=== PATIENT | female | born 1990 | race Caucasian/White ===

== ENCOUNTER 2018-04-13 11:59 | Inpatient (IN) ==
[2018-04-13 12:45] LABS: Basophils % 0.3 %; Eosinophils # 0.2 K/mcL (0.0-0.6); Eosinophils % 2.3 %; Hematocrit 36.2 % (35.3-44.9); Immature Granulocytes % 0.9 % (0-4); Lymphocytes % 26.2 %; Mean Corpuscular HGB Conc 30.4 g/dL (31.6-35.5); Mean Corpuscular Hemoglobin 23.5 pg (28.0-33.3); Mean Corpuscular Volume 77.4 fL (83.0-100.0); Mean Platelet Volume 9.8 fL (9.4-12.4); Monocytes # 0.7 K/mcL (0.0-1.3); Monocytes % 9.6 %; Neutrophils # 4.6 K/mcL (1.6-8.9); Platelet Count 314 K/mcL (140-400); Red Blood Count 4.68 M/mcL (3.82-4.97); Red Cell Distribution Width 19.4 % (11.5-14.5); Segmented Neutrophils % 60.7 %
[2018-04-13 12:58] LABS: BUN/Creatinine Ratio 24 (6-26); Blood Urea Nitrogen 14 mg/dL (6-20); Calcium 9.8 mg/dL (8.6-10.3); Carbon Dioxide 28 mEq/L (23-29); Chloride 101 mEq/L (98-107); Glucose 89 mg/dL (70-105); Osmolality,Calculated 286 (280-300); Potassium 3.5 mEq/L (3.5-5.1); Sodium 138 mEq/L (136-145); eGFR For Non-African Americans > 60 (> 60)
[2018-04-13 13:00] LABS: Troponin I < 0.03 ng/mL (< 0.04)
[2018-04-13] MEDS ORDERED: Vancomycin 1,000 MG in D5% in Water 250 ML IVPB ONE (13:24)
[2018-04-13] MEDS ORDERED: Piperacillin/Tazobactam 3.375 GM in 0.9 % Sodium Chloride Mini Bag 100 ML IVPB ONE (13:24)
[2018-04-13] MEDS ORDERED: 0.9 % Sodium Chloride 1,000 ML IVC ONE (13:24)
[2018-04-13] MEDS ORDERED: Acetaminophen 325 MG TABLET PO ONE (13:26)
[2018-04-13] MEDS ORDERED: Ketorolac 15 MG/ML VIAL IVP ONE (13:26)
--- NOTE | 2018-04-13 14:36 | Emergency Department Note ---
Disposition Clinical Impression: Sepsis, Pneumonia Disposition: Admitted As Inpatient Condition: Fair SOB HPI - General Chief Complaint: ED Shortness of Breath/Dyspnea Stated Complaint: Pneumonia Time Seen by Provider: 04/13/18 12:11 Source: patient Limitations: no limitations Nursing Notes Reviewed: Yes Vital Signs Reviewed: Yes - History of Present Illness 27-year-old female presents emergency Department with concerns of difficulty in breathing and chest pain. Patient is tachycardic on initial evaluation. She was recently admitted for multifocal pneumonia and had been discharged yesterday. It appears that she requested to leave early however upon returning home she developed worsening of her pain and breathing. Patient is afebrile emergency department. She does not have elevation of white blood cell count. She has been using Levaquin at home and was given Levaquin in the hospital. - Related Data Home Medications Medication Instructions Recorded Confirmed Methadone 90 mg PO 0730 03/23/18 04/13/18 RX: Acetaminophen [Tylenol] 325 mg PO Q6HR PRN 03/23/18 04/13/18 RX: Gabapentin [Neurontin] 100 mg PO TID 03/23/18 04/13/18 RX: Albuterol Sulfate [Albuterol 2 puff IH Q4HR PRN 04/09/18 04/13/18 Inhaler] Previous Rx's Medication Instructions Recorded RX: Promethazine/Codeine 5 ml PO Q6HR PRN 5 Days #100 udc 04/12/18 [Phenergan/Codeine] levoFLOXacin [Levaquin] 750 mg PO DAILY #7 tablet 04/12/18 Allergies Allergy/AdvReac Type Severity Reaction Status Date / Time No Known Allergies Allergy Verified 04/13/18 12:03 All systems ED: reviewed and negative except as stated. Review of Systems: As Per HPI Past Medical History - Past Medical History Attestation: Yes The following information was validated with the patient. Source: patient Medical history: Reports: non-contributory, kidney stones Surgical history: Reports: cholecystectomy Psychiatric history: Reports: no psych history SOMMELIER history: Reports: other - Social History Smoking Status: Current every day smoker Smokeless Tobacco Status: No Alcohol use: Reports: none Drug use: Reports: none, other Physical Exam General: Alert and in no acute distress Skin: Warm, dry, intact Head: Normocephalic and atraumatic Neck: Supple, trachea midline and no tenderness Cardiovascular: Tachycardia, no murmur, normal perfusion Respiratory: CTAB, no wheezing, cough, or respiratory distress Musculoskeletal: Normal strength, no tenderness, swelling or deformity GI: Soft, nontender, nondistended. Bowel sounds present Neuro: A&O to person, place, time and situation. No focal deficits noted on exam Psychiatric: cooperative and appropriate mood and affect. - General Limitations: no limitations General appearance: alert Course Vital Signs Temperature 98.3 F 04/13/18 12:02 Pulse Rate 135 04/13/18 12:02 Respiratory Rate 24 04/13/18 12:02 Blood Pressure 113/76 04/13/18 12:02 O2 Sat by Pulse Oximetry 99 04/13/18 12:02 Temperature 98.2 F 04/14/18 20:05 Pulse Rate 110 04/14/18 20:05 Respiratory Rate 16 04/14/18 20:05 Blood Pressure 114/70 04/14/18 20:05 O2 Sat by Pulse Oximetry 98 04/14/18 20:05 Oxygen Delivery Oxygen Delivery Room Air Shortness of Breath/Dyspnea - [facility] Narrative Medical decision making narrative: CTA negative for acute PE. Shows multiple groundglass appearance. Patient given antibiotics in the emergency department for likely pneumonia. Patient will be admitted to the hospital for further care and evaluation - Medical Records Medical records reviewed: Yes I reviewed the patient's medical records. - Lab Data Lab results reviewed: Yes I reviewed the patient's lab results. Result diagrams: 04/14/18 01:03 04/14/18 01:03 Lab Results 04/13/18 04/13/18 04/13/18 Range/Units 12:27 12:27 12:27 WBC 7.5 (4.3-11.1) K/mcL RBC 4.68 (3.82-4.97) M/mcL Hgb 11.0 L (11.5-15.4) g/dL Hct 36.2 (35.3-44.9) % MCV 77.4 L (83.0-100.0) fL MCH 23.5 L (28.0-33.3) pg MCHC 30.4 L (31.6-35.5) g/dL RDW 19.4 H (11.5-14.5) % Plt Count 314 (140-400) K/mcL MPV 9.8 (9.4-12.4) fL Immature Gran % 0.9 (0-4) % Seg Neutrophils % 60.7 % Lymphocytes % 26.2 % Monocytes % 9.6 % Eosinophils % 2.3 % Basophils % 0.3 % Neutrophils # 4.6 (1.6-8.9) K/mcL Lymphocytes # 2.0 (0.6-4.6) K/mcL Monocytes # 0.7 (0.0-1.3) K/mcL Eosinophils # 0.2 (0.0-0.6) K/mcL Basophils # 0.0 (0.0-0.2) K/mcL Sodium 138 (136-145) mEq/L Potassium 3.5 (3.5-5.1) mEq/L Chloride 101 (98-107) mEq/L Carbon Dioxide 28 (23-29) mEq/L BUN 14 (6-20) mg/dL Creatinine 0.58 L (0.60-1.20) mg/dL Est GFR ( Amer) > 60 (> 60) Est GFR (Non-Af Amer) > 60 (> 60) BUN/Creatinine Ratio 24 (6-26) Glucose 89 (70-105) mg/dL Calculated Osmolality 286 (280-300) Lactic Acid 1.9 (0.5-2.2) mmol/L Calcium 9.8 (8.6-10.3) mg/dL Troponin I < 0.03 (< 0.04) ng/mL B-Natriuretic Peptide (Less than 100) pg/mL 04/13/18 Range/Units 12:27 WBC (4.3-11.1) K/mcL RBC (3.82-4.97) M/mcL Hgb (11.5-15.4) g/dL Hct (35.3-44.9) % MCV (83.0-100.0) fL MCH (28.0-33.3) pg MCHC (31.6-35.5) g/dL RDW (11.5-14.5) % Plt Count (140-400) K/mcL MPV (9.4-12.4) fL Immature Gran % (0-4) % Seg Neutrophils % % Lymphocytes % % Monocytes % % Eosinophils % % Basophils % % Neutrophils # (1.6-8.9) K/mcL Lymphocytes # (0.6-4.6) K/mcL Monocytes # (0.0-1.3) K/mcL Eosinophils # (0.0-0.6) K/mcL Basophils # (0.0-0.2) K/mcL Sodium (136-145) mEq/L Potassium (3.5-5.1) mEq/L Chloride (98-107) mEq/L Carbon Dioxide (23-29) mEq/L BUN (6-20) mg/dL Creatinine (0.60-1.20) mg/dL Est GFR ( Amer) (> 60) Est GFR (Non-Af Amer) (> 60) BUN/Creatinine Ratio (6-26) Glucose (70-105) mg/dL Calculated Osmolality (280-300) Lactic Acid (0.5-2.2) mmol/L Calcium (8.6-10.3) mg/dL Troponin I (< 0.04) ng/mL B-Natriuretic Peptide 14 (Less than 100) pg/mL - Radiology Data Radiology results reviewed: Yes I reviewed the patient's radiology results. - EKG Data EKG attestation: Yes I reviewed and interpreted this EKG. EKG results narrative: Sinus tachycardia with a rate of 122. QTc 468, QRS 76. No STEMI.
[2018-04-13] MEDS ORDERED: Isovue-370 500 ML INFUS..BTL IV ONE (14:39)
--- NOTE | 2018-04-13 17:05 | Internal Med History&Physical ---
Date of Encounter: 04/13/18 Time of Encounter: 17:01 Internal Medicine - H&P: HPI Chief complaint: Shortness of breath Admitted From: Home Plans for Post Hospital Care: Home History of present illness: Ms. Miguel is a 27 year old current every day smoker, homeless female with recent admission for multifocal pneumonia discharged on 04/12 presented to the emergency department with complaint of shortness of breath. As per patient and documentation she is had nearly two-month history of respiratory symptoms where she has been to urgent care multiple times in the past 2 months and has received various antibiotics, inhalers and steroids for her shortness of breath. She reports that none of the medicines above have im proved her symptoms and she continues to worsen. She reports that she has taken all the antibiotics, inhalers and steroids as prescribed and has finished all the courses. Today she went to her methadone clinic however was given half of her methadone dose and was feeling out of breath at rest and on ambulation so she decided to come to the emergency department. She reports that she has a productive cough with yellow sputum denies blood. Coughing is associated with chest pain, he denies history of blood clots, leg swelling, calf tenderness. She cannot recall any aggravating or alleviating factors. She was recently admitted to [facility] on 04/[address] angiogram at that time showed multifocal groundglass consolidation and it was negative for pulmonary embolism she was treated with IV fluids and IV Levaquin and was discharged to finish course of by mouth Levaquin however she could not catch her breath so she decided to come to the emergency department for further evaluation today. 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 She the current every day smoker but is trying to quit In the ED she was found to be tachycardic and tachypneic CT angiogram of the chest was repeated which was negative for PE however he showed worsening Multiple areas of ground-glass pulmonary opacities, with areas of solid pulmonary opacities. Ground-glass pulmonary opacity have decreased, while small solid pulmonary opacities have increased. Differential consideration includes ongoing atypical infection, pulmonary edema, or aspiration. Pulmonary hemorrhage is less likely. Past Med Surg Social Fam HX - Past Medical History Medical history: non-contributory, kidney stones Psychiatric history: no psych history - Past Surgical History Surgical History: cholecystectomy - Social History Smoking Status: Current every day smoker Smokeless Tobacco Status: No Alcohol use: none Drug use: none, other Internal Medicine - H&P: Meds Acetaminophen [Tylenol] 325 mg PO Q6HR PRN 03/23/18 [History] Gabapentin [Neurontin] 100 mg PO TID 03/23/18 [History] Methadone 90 mg PO 0730 03/23/18 [History] Albuterol Sulfate [Albuterol Inhaler] 2 puff IH Q4HR PRN 04/09/18 [History] Promethazine/Codeine [Phenergan/Codeine] 5 ml PO Q6HR PRN 5 Days #100 udc 04/12/18 [Rx] levoFLOXacin [Levaquin] 750 mg PO DAILY #7 tablet 04/12/18 [Rx] Allergy/AdvReac Type Severity Reaction Status Date / Time No Known Allergies Allergy Verified 04/13/18 12:03 All Systems PM: review of systems was performed and is negative for pertinent findings except as documented above in the HPI. - Constitutional Vitals: Temp Pulse Resp BP Pulse Ox 98.3 F 90 16 108/70 100 04/13/18 12:20 04/13/18 15:32 04/13/18 15:32 04/13/18 15:32 04/13/18 15:32 Exam: General: Patient is alert, oriented, no acute distress, poor hygiene Head: atraumatic, normocephalic, Eye: normal appearance, PERRL, no scleral icterus, no conjunctival injection ENT: mucous membranes moist, normal external ear exam Neck: normal inspection, trachea midline, full ROM, no carotid bruits Chest: normal inspection, symmetric chest rise Respiratory: Diffuse wheezing and crackles in the posterior lung fink Cardiovascular: Tachycardic s1 and s2 No clicks, rubs, gallops, or murmors. Abdomen: Bowel sounds present normoactive x-4 quadrants. Abdomen is soft, nondistended. no Epigastric tenderness. No guarding or rebound. No organomegaly noted, obese musculoskeletal: Spontaneously moving all extremities. no edema, no calf tenderness, Skin: warm, dry, intact.no splinter hemorrhages or Janeway lesions Neuro: Alert and oriented x4. Sensation light touch intact. Cranial nerves 2- 12 is intact. Not aphasic, no focal deficit Psych: Patient's affect is normal Internal Med - H&P Results - Labs CBC & Chem 7: 04/13/18 12:27 04/13/18 12:27 Labs: Short CBC 04/13/18 Range/Units 12:27 WBC 7.5 (4.3-11.1) K/mcL Hgb 11.0 L (11.5-15.4) g/dL Hct 36.2 (35.3-44.9) % Plt Count 314 (140-400) K/mcL Neutrophils # 4.6 (1.6-8.9) K/mcL BMP 04/13/18 12:27 Sodium 138 Potassium 3.5 Chloride 101 Carbon Dioxide 28 BUN 14 Creatinine 0.58 L Glucose 89 Calcium 9.8 Cardiac Enzymes 04/13/18 Range/Units 12:27 Troponin I < 0.03 (< 0.04) ng/mL - EKG Data -: EKG Interpreted by Myself (Sinus tachycardia, QT 468) - Impressions ITS Impressions Chest X-Ray 04/13/18 12:33 IMPRESSION: 1. No active pulmonary disease. D/ / Giorgi Bacon MD / Giorgi Bacon MD Interpreting Provider: Giorgi Bacon MD Chest CTA 04/13/18 14:39 IMPRESSION: No evidence of acute pulmonary emboli. Multiple areas of ground-glass pulmonary opacities, with areas of solid pulmonary opacities. Ground-glass pulmonary opacity have decreased, while small solid pulmonary opacities have increased. Differential consideration includes ongoing atypical infection, pulmonary edema, or aspiration. Pulmonary hemorrhage is less likely. Consider three month follow-up to document resolution. Numerous pulmonary nodules within the bilateral lower lobes are new since previous examination. This could be seen in setting of atypical infection or aspiration. Attention on follow-up examination is recommended. D/ 04/13/2018 16:47:48 Bernard Bauer MD / zain Interpreting Provider: Bernard Bauer MD - Assessment and plan (1) Multifocal pneumonia Current Visit: Yes Status: Acute Assessment and plan: Atypical pneumonia versus aspiration pneumonia has failed multiple OP treatments We will start her on vancomycin, Zosyn, Levaquin- pharmacy to dose - watch QT renally adjust above Abx Urine antigens, respiratory viral panel, sputum cultures, blood cultures Oxygen via nasal cannula to keep saturations above 92 Solu-Medrol 40 mg every 8 hours HIV,Quantiferon, mycoplasma DuoNeb's every 4 hours Pulmonology consult Consider ID consult (2) History of substance abuse Current Visit: No Status: Acute Assessment and plan: U tox Confirmed methadone dosage with pharmacists as it was confirmed on her last admission- ok to continue (3) Nicotine dependence Current Visit: No Status: Acute Assessment and plan: Nicotine patch Was counseled Qualifiers: Nicotine product type: cigarettes Substance use status: uncomplicated Qualified Code(s): F17.210 - Nicotine dependence, cigarettes, uncomplicated (4) Poor social situation Current Visit: Yes Status: Acute Assessment and plan: Patient apparently lives in a fci and has poor support exciting case management and social work consult (5) DVT prophylaxis Current Visit: No Status: Acute Assessment and plan: Heparin subcutaneous - Time Spent With Patient Total time spent is greater than 50% in coordination of care (as documented) at patient's floor/unit and/or counseling patient:
[2018-04-13] MEDS ORDERED: *HR* Methadone 10 MG TABLET PO ONE (17:25)
[2018-04-13] MEDS ORDERED: Naloxone 0.4 MG/ML INJ IVP PRN (17:29)
[2018-04-13] MEDS ORDERED: Levofloxacin 750 MG/150 ML 750 MG/150 ML BAG IVPB SCH (17:45)
[2018-04-13] MEDS ORDERED: Vancomycin 1 EACH in 0.9 % Sodium Chloride 250 ML IVPB SCH (18:00)
[2018-04-13] MEDS: Ipratropium/Albuterol Neb 3 ML IH SCH (20:24)
[2018-04-13] MEDS: *HR* Heparin 5,000 UNIT/ML VIAL SQ SCH (21:24)
[2018-04-13] MEDS: 0.9 % Sodium Chloride 1,000 ML IVC SCH (21:24)
[2018-04-13] MEDS: Levofloxacin 750 MG/150 ML 750 MG/150 ML BAG IVPB SCH (21:24)
[2018-04-13] MEDS: Nicotine 14 MG PATCH.TD24 TD SCH (21:25)
[2018-04-13 22:47] LABS: Bilirubin,Urine Negative (Negative); Blood,Urine Negative (Negative); Clarity,Urine Clear (Clear); Color,Urine Yellow (Yellow); Glucose,Urine (UA) Normal (Normal); Ketones,Urine Negative (Negative); Leukocyte Esterase,Urine Negative (Negative); Nitrite,Urine Negative (Negative); Protein,Urine Negative (Neg-Trace); Specific Gravity,Urine 1.029 (1.010-1.025); Urobilinogen,Urine Normal (Normal)
[2018-04-13 23:06] LABS: Amphetamine Screen,Urine Positive ng/mL (Cutoff=1000); Barbiturate Screen,Urine Negative ng/mL (Cutoff=200); Benzodiazepines Screen,Urine Negative ng/mL (Cutoff=200); Cannabinoid Screen,Urine Negative ng/mL (Cutoff = 50); Cocaine Screen,Urine Negative ng/mL (Cutoff= 300); Opiate Screen,Urine Positive ng/mL (Cutoff=300); Phencyclidine Screen,Urine Negative ng/mL (Cutoff=25)
[2018-04-13] MEDS: Piperacillin/Tazobactam 3.375 GM in 0.9 % Sodium Chloride Mini Bag 100 ML IVPB SCH (23:51)
[2018-04-13] MEDS: MethylPREDNISolone 40 MG/ML VIAL IVP SCH (23:52)
[2018-04-14] MEDS ORDERED: 0.9 % Sodium Chloride 500 ML IVC ONE (00:08)
[2018-04-14] MEDS: Ipratropium/Albuterol Neb 3 ML IH SCH ×7 (00:09→23:14)
[2018-04-14 01:26] LABS: Basophils % 0.5 %; Eosinophils # 0.2 K/mcL (0.0-0.6); Eosinophils % 3.7 %; Hematocrit 33.2 % (35.3-44.9); Hemoglobin 9.8 g/dL (11.5-15.4); Immature Granulocytes % 0.6 % (0-4); Lymphocytes # 2.4 K/mcL (0.6-4.6); Lymphocytes % 36.8 %; Mean Corpuscular HGB Conc 29.5 g/dL (31.6-35.5); Mean Corpuscular Hemoglobin 23.3 pg (28.0-33.3); Mean Corpuscular Volume 78.9 fL (83.0-100.0); Monocytes # 0.5 K/mcL (0.0-1.3); Monocytes % 8.3 %; Neutrophils # 3.2 K/mcL (1.6-8.9); Platelet Count 280 K/mcL (140-400); Red Blood Count 4.21 M/mcL (3.82-4.97); Red Cell Distribution Width 19.4 % (11.5-14.5); Segmented Neutrophils % 50.1 %
[2018-04-14 01:45] LABS: BUN/Creatinine Ratio 16 (6-26); Blood Urea Nitrogen 10 mg/dL (6-20); Calcium 8.8 mg/dL (8.6-10.3); Carbon Dioxide 27 mEq/L (23-29); Chloride 104 mEq/L (98-107); Glucose 133 mg/dL (70-105); Osmolality,Calculated 289 (280-300); Potassium 3.4 mEq/L (3.5-5.1); Sodium 139 mEq/L (136-145); eGFR For Non-African Americans > 60 (> 60)
[2018-04-14 02:19] LABS: Adenovirus Not Detected (Not Detect); Bordetella Pertussis Not Detected (Not Detect); Chlamydophila pneumoniae Not Detected (Not Detect); Coronavirus 229E Not Detected (Not Detect); Coronavirus HKU1 Not Detected (Not Detect); Coronavirus NL63 Not Detected (Not Detect); Coronavirus OC43 Not Detected (Not Detect); Human Metapneumovirus Not Detected (Not Detect); Human Rhinovirus/Enterovirus Not Detected (Not Detect); Influenza A Subtype 2009 H1 Not Detected (Not Detect); Influenza A Untypeable Not Detected (Not Detect); Influenza B Not Detected (Not Detect); Mycoplasma pneumoniae Not Detected (Not Detect); Parainfluenza Virus 1 Not Detected (Not Detect); Parainfluenza Virus 2 Not Detected (Not Detect); Parainfluenza Virus 3 Not Detected (Not Detect); Parainfluenza Virus 4 Not Detected (Not Detect); Respiratory Syncytial Virus Not Detected (Not Detect)
[2018-04-14] MEDS: Acetaminophen 325 MG TABLET PO PRN (04:25)
[2018-04-14] MEDS: *HR* Heparin 5,000 UNIT/ML VIAL SQ SCH ×3 (05:24→21:05)
[2018-04-14] MEDS ORDERED: Potassium Chloride Elixir 20 MEQ/15 ML UDC PO SCH (08:15)
[2018-04-14] MEDS: Nicotine 14 MG PATCH.TD24 TD SCH (08:21)
[2018-04-14] MEDS: MethylPREDNISolone 40 MG/ML VIAL IVP SCH ×2 (08:23→17:00)
[2018-04-14] MEDS: Folic Acid 1 MG TABLET PO SCH (08:23)
[2018-04-14] MEDS: Piperacillin/Tazobactam 3.375 GM in 0.9 % Sodium Chloride Mini Bag 100 ML IVPB SCH ×2 (08:23→16:59)
[2018-04-14] MEDS: *HR* Methadone 10 MG TABLET PO SCH (08:24)
[2018-04-14] MEDS: 0.9 % Sodium Chloride 1,000 ML IVC SCH ×2 (08:24→12:31)
--- NOTE | 2018-04-14 08:49 | Pulmonology Consult Note ---
Date of Encounter: 04/14/18 Time of Encounter: 08:45 Assessment and Plan (1) Multifocal pneumonia Current Visit: Yes Status: Acute I reviewed the CT scan findings with the patient she has evidence of multifocal infiltrates this is either related to an infectious process that has not been treated adequately (or resistent) or more likely related to inflammatory changes within the lung secondary to pulmonary toxicity, hypersensitivity, or vasc ulitis. Patient is currently being treated with antimicrobials I would hold off on IV or oral glucocorticoids at this time pending bronchoscopy I have sent off inflammatory serologies A bronchoscopy is recommended. The procedure , risks, benefits, complications, and expected outcomes have been reviewed. Benefits of diagnosis, as well as risks to include bleeding, infection, pneumothorax which may require surgical intervention, and in a small population. The patient is aware that sometimes test is nondiagnostic. Discussed with patient and agrees to proceed. Please keep nothing by mouth at midnight Smoking cessation counseling given to the patient, please proved nicotine patch if requested (2) History of substance abuse Current Visit: No Status: Acute (3) Nicotine dependence Current Visit: No Status: Acute Qualifiers: Nicotine product type: cigarettes Substance use status: uncomplicated Qualified Code(s): F17.210 - Nicotine dependence, cigarettes, uncomplicated History of Present Illness Consult date: 04/14/18 Requesting physician: Ana Courtney Reason for consult: pneumonia Chief complaint: Difficulty in Breathing. History of present illness: The patient is a pleasant 27-year-old currently homeless woman who presented to the emergency room for shortness of breath and chest pain. She presented to the emergency department tachycardic had recently been admitted for multifocal pneumonia and was discharged the previous day. She was discharged from the hospital to take Levaquin. Of note she has a 2 month history of respiratory symptoms including multiple visits to urgent care after complaining of steroids and shortness of breath despite treatment with antibiotics and steroids symptoms have not abated. She had a CT angiogram done here on 04/10 during her presentation for similar symptoms which was notable for multifocal groundglass consolidation but negative for PE in the emergency department another a CT angiogram was performed and negative for filling defect that showed multiple areas of worsening groundglass pulmonary opacities. Pulmonary was consulted for further evaluation. Of note urinary tox screen was positive for opiates and amphetamines. Patient states her eye complaints right now is that it hurts to take a deep b reath that she has been coughing and occasionally wheezing. She denies any hemoptysis joint pains or rash. Only medication that she is taken on a new basis has been methadone. She adamantly denies any sort of inhalation of drugs including methamphetamines Past Med Surg Social Fam HX - Past Medical History Medical history: kidney stones Additional medical history: pneumonia Psychiatric history: no psych history - Past Surgical History Surgical History: cholecystectomy - Social History Smoking Status: Current every day smoker Smokeless Tobacco Status: Yes Alcohol use: none Drug use: cocaine, opiates - Family History Mother Living Status: Hx Family Respiratory Disorders: Yes (Lung cancer) Medications and Allergies Acetaminophen [Tylenol] 325 mg PO Q6HR PRN 03/23/18 [History] Gabapentin [Neurontin] 100 mg PO TID 03/23/18 [History] Methadone 90 mg PO 0730 03/23/18 [History] Albuterol Sulfate [Albuterol Inhaler] 2 puff IH Q4HR PRN 04/09/18 [History] Promethazine/Codeine [Phenergan/Codeine] 5 ml PO Q6HR PRN 5 Days #100 udc 04/12/18 [Rx] levoFLOXacin [Levaquin] 750 mg PO DAILY #7 tablet 04/12/18 [Rx] Allergy/AdvReac Type Severity Reaction Status Date / Time No Known Allergies Allergy Verified 04/13/18 12:03 All Systems: The remainder of the systems were reviewed and are negative Physical Examination Vital Signs: Vital Signs, Last 4 Hours Temp Pulse Resp BP Pulse Ox 04/14/18 07:52 99 F 117 16 102/48 96 04/14/18 07:27 20 98 General appearance: no acute distress Eyes: nonicteric ENT: oropharynx moist Effort: normal Auscultation: bilateral: wheezes (inspiratory and expiratory wheezing) Cardiovascular: regular rate and rhythm Gastrointestinal: normoactive bowel sounds Integumentary: normal Extremities: no cyanosis Musculoskeletal: no deformities normal mental status, non-focal exam mood appropriate Results - Laboratory Findings CBC and BMP: 04/14/18 01:03 04/14/18 01:03 Abnormal lab findings: Abnormal lab results Hgb 9.8 g/dL (11.5-15.4) L 04/14/18 01:03 Hct 33.2 % (35.3-44.9) L 04/14/18 01:03 MCV 78.9 fL (83.0-100.0) L 04/14/18 01:03 MCH 23.3 pg (28.0-33.3) L 04/14/18 01:03 MCHC 29.5 g/dL (31.6-35.5) L 04/14/18 01:03 RDW 19.4 % (11.5-14.5) H 04/14/18 01:03 Potassium 3.4 mEq/L (3.5-5.1) L 04/14/18 01:03 Glucose 133 mg/dL (70-105) H 04/14/18 01:03 Ur Specific Jamison 1.029 (1.010-1.025) H 04/13/18 22:15 Urine Opiates Screen Positive ng/mL (Kxliue=[id number]) H 04/13/18 22:15 Ur Amphetamines Screen Positive ng/mL (Aedmfk=0019) H 04/13/18 22:15 - Microbiology Findings Microbiology Findings: Microbiology, Last 48 Hours 04/14/18 00:30 Sputum Culture - Preliminary Sputum 04/13/18 22:15 Legionella Antigen - Final Urine,Clean Catch Streptococcus pneumoniae Antigen (M - Final 04/13/18 17:38 Blood Culture - Preliminary Peripheral Venipuncture Culture is incubating and being continuously monitored for growth. Final report to follow. 04/13/18 17:38 Blood Culture - Preliminary Peripheral Venipuncture Culture is incubating and being continuously monitored for growth. Final report to follow. 04/13/18 12:27 Blood Culture - Preliminary Peripheral Venipuncture Culture is incubating and being continuously monitored for growth. Final report to follow. - Diagnostic Findings Chest x-ray: report reviewed, image reviewed CT scan - chest: report reviewed, image reviewed - Clinical Findings Intake & Output: Intake & Output 04/13/18 04/14/18 04/14/18 23:59 07:59 15:59 Intake Total 1350 / 1350 1000 / 1000 Output Total 0 / 0 650 / 650 Balance 1350 / 1350 350 / 350 Weight 56.8 kg Consult Discharge Plan - Plan Referrals: Angie Jeff [Primary Care Provider] -
--- NOTE | 2018-04-14 09:19 | Internal Med Progress Note ---
<Bud Alvarado S - Last Filed: 04/14/18 09:27> Hospitalist Progress Note - Encounter Date of Encounter: 04/14/18 Time of Encounter: 09:14 - Subjective Interval History: Ms. Miguel is a 27yo female with a PMH of recurrent pneumonia and drug abuse. She is homeless. She was recently here and d/c on 04.12 for multifocal pneumonia. She re-presented on 04/13 for increasing SOB. She has had SOB symptoms daily for the last 2 months and has gone to see urgent care doctors many times, she has been treated with antibiotics. Yesterday she went to the methadone clinic and while getting treated she reports that he began to feel SOB and dizzy at rest, which isn't typical for her. She decided to come back to the emergency room bc she was too short of breath to do anything. She reports a productive cough of yellow and black mucus and denies any sputum production. She has chest pain associated with her SOB and states that the coughing increases her CP. She states that she chest pain doesn't radiate anywhere and isn't reproducible in nature. The pt had a CT on 04/10 that showed multifocal groundglass consolidation and it was negative for pulmonary embolism - at that time she was treated with IVF and levaquin, d/c with levaquin The pt has an extensive hx of drug abuse. She has been clean for a little over 2 mos and denies any recent IVDU. She uses tobacco products still. In the ER the pt had a repeat CT which showed worsening areas of ground glass opacities with areas of solid pulmonary opacities. This morning the pt is seen at bedside. She c/o chest pain with coughing, continued yellow/black sputum production, and SOB. She denies any N/V/D, abd pain. She denies palpiltations. She denies any recent drug use. - Exam Vitals: Temp Pulse Resp BP Pulse Ox 99 F 117 16 102/48 96 04/14/18 07:52 04/14/18 07:52 04/14/18 07:52 04/14/18 07:52 04/14/18 07:52 Exam: General: Patient is alert, oriented, no acute distress, poor hygiene Head: atraumatic, normocephalic, Eye: normal appearance, PERRL, no scleral icterus, no conjunctival injection ENT: mucous membranes moist, normal external ear exam Neck: normal inspection, trachea midline, full ROM, no carotid bruits Chest: normal inspection, symmetric chest rise Respiratory: Diffuse wheezing and crackles in the posterior lung fink Cardiovascular: Tachycardic s1 and s2 No clicks, rubs, gallops, or murmors. Abdomen: Bowel sounds present normoactive x-4 quadrants. Abdomen is soft, nondistended. no Epigastric tenderness. No guarding or rebound. No organomegaly noted, obese musculoskeletal: Spontaneously moving all extremities. no edema, no calf tenderness, Skin: warm, dry, intact.no splinter hemorrhages or Janeway lesions Neuro: Alert and oriented x4. Sensation light touch intact. Cranial nerves 2- 12 is intact. Not aphasic, no focal deficit Psych: Patient's affect is normal - Assessment and Plan (1) Multifocal pneumonia Current Visit: Yes Status: Acute Assessment and Plan: Pt has had multiple episodes of pneumonia - continues to fail outpatient treatment - was recently here and d/c on 04/11 for the same complaints - pt has a hx of IVDU and multiple risky behaviors, need to r/o HIV associated infxns and TB CT scan on admission - no evidence of PE - Atypical pneumonia versus aspiration pneumonia - numerous pulmonary nodules in the bilateral lower lobes atypical infxn vs aspiration Legionella, s pneumo antigens negative Respiratory panel negative Pt does NOT meet sepsis criteria - WBC 6.4 - HR 117, RR 16 - BP stable Plan: - keep O2 sat above 92% - blood cx pending - continue vancomycin, zosyn, levaquin day 2 - monitor renal fxn - monitor cbc - HIV, TB and mycoplasma tests pending - duonebs q4hr - solumedrol [id number], will space today if clinically improving - pulmonology conuslted, recommendations appreciated MPO/PR3, ANAND IgG, CCP IgG, complement, rheumatoid factor, cryoglobulin all pending - ID consult considered due to recurrent pneumonia (2) History of substance abuse Current Visit: No Status: Acute Assessment and Plan: UDS positive for opiates and amphetamines - continue methadone dosage as confirmed by pharmacist - methadone 90mg PO daily (3) Nicotine dependence Current Visit: No Status: Acute Assessment and Plan: Nicotine patch - current everyday smoker - counsled on the risks of lung cancer and from smoking (4) DVT prophylaxis Current Visit: No Status: Acute Assessment and Plan: Heparin subcutaneous (5) Poor social situation Current Visit: Yes Status: Acute Assessment and Plan: Lives in senior living - case management and SW to see (6) Hypokalemia Current Visit: Yes Status: Acute Assessment and Plan: Potassium 3.4 - replaced PO - check BMP in AM - Time Spent with Patient Total time spent is greater than 50% in coordination of care (as documented) at patient's floor/unit and/or counseling patient: Internal Medicine: Result - Labs CBC & Chem 7: 04/14/18 01:03 04/14/18 01:03 Labs: Short CBC 04/13/18 04/14/18 Range/Units 12:27 01:03 WBC 7.5 6.4 (4.3-11.1) K/mcL Hgb 11.0 L 9.8 L (11.5-15.4) g/dL Hct 36.2 33.2 L (35.3-44.9) % Plt Count 314 280 (140-400) K/mcL Neutrophils # 4.6 3.2 (1.6-8.9) K/mcL BMP 04/13/18 04/14/18 12:27 01:03 Sodium 138 139 Potassium 3.5 3.4 L Chloride 101 104 Carbon Dioxide 28 27 BUN 14 10 Creatinine 0.58 L 0.63 Glucose 89 133 H Calcium 9.8 8.8 Cardiac Enzymes 04/13/18 04/14/18 Range/Units 12:27 01:03 Troponin I < 0.03 < 0.03 (< 0.04) ng/mL Urine 04/13/18 Range/Units 22:15 Urine Color Yellow (Yellow) Urine Clarity Clear (Clear) Urine pH 6.0 (5.0-8.0) pH Units Ur Specific [place] 1.029 H (1.010-1.025) Urine Protein Negative (Neg-Trace) mg/dL Urine Glucose (UA) Normal (Normal) mg/dL - Impressions Impressions Chest X-Ray 04/13/18 12:33 IMPRESSION: 1. No active pulmonary disease. D/ / Giorgi Bacon MD / Giorgi Bacon MD Interpreting Provider: Giorgi Bacon MD Chest CTA 04/13/18 14:39 IMPRESSION: No evidence of acute pulmonary emboli. Multiple areas of ground-glass pulmonary opacities, with areas of solid pulmonary opacities. Ground-glass pulmonary opacity have decreased, while small solid pulmonary opacities have increased. Differential consideration includes ongoing atypical infection, pulmonary edema, or aspiration. Pulmonary hemorrhage is less likely. Consider three month follow-up to document resolution. Numerous pulmonary nodules within the bilateral lower lobes are new since previous examination. This could be seen in setting of atypical infection or aspiration. Attention on follow-up examination is recommended. D/ / 04/13/2018 16:47:48 Bernard Bauer MD / zain Interpreting Provider: Bernard Bauer MD Consult Discharge Plan - Plan Referrals: Angie Jeff [Primary Care Provider] - <Aan Courtney - Last Filed: 04/14/18 14:55> Hospitalist Progress Note - Encounter Date of Encounter: 04/14/18 - Exam Vitals: Temp Pulse Resp BP Pulse Ox 98.2 F 116 14 105/57 95 04/14/18 12:29 04/14/18 12:29 04/14/18 12:29 04/14/18 12:29 04/14/18 12:29 - Assessment and Plan (1) History of substance abuse Current Visit: No Status: Acute (2) Nicotine dependence Current Visit: No Status: Acute (3) DVT prophylaxis Current Visit: No Status: Acute (4) Multifocal pneumonia Current Visit: Yes Status: Acute (5) Poor social situation Current Visit: Yes Status: Acute (6) Hypokalemia Current Visit: Yes Status: Acute - Time Spent with Patient Total time spent is greater than 50% in coordination of care (as documented) at patient's floor/unit and/or counseling patient: Internal Medicine: Result - Labs CBC & Chem 7: 04/14/18 01:03 04/14/18 01:03 Labs: Short CBC 04/14/18 Range/Units 01:03 WBC 6.4 (4.3-11.1) K/mcL Hgb 9.8 L (11.5-15.4) g/dL Hct 33.2 L (35.3-44.9) % Plt Count 280 (140-400) K/mcL Neutrophils # 3.2 (1.6-8.9) K/mcL BMP 04/14/18 01:03 Sodium 139 Potassium 3.4 L Chloride 104 Carbon Dioxide 27 BUN 10 Creatinine 0.63 Glucose 133 H Calcium 8.8 Cardiac Enzymes 04/14/18 04/14/18 Range/Units 01:03 12:00 Troponin I < 0.03 < 0.03 (< 0.04) ng/mL Urine 04/13/18 Range/Units 22:15 Urine Color Yellow (Yellow) Urine Clarity Clear (Clear) Urine pH 6.0 (5.0-8.0) pH Units Ur Specific [place] 1.029 H (1.010-1.025) Urine Protein Negative (Neg-Trace) mg/dL Urine Glucose (UA) Normal (Normal) mg/dL - Impressions Impressions Chest CTA 04/13/18 14:39 IMPRESSION: 1. No evidence of acute pulmonary emboli. 2. Multiple areas of ground-glass pulmonary opacities, with areas of solid pulmonary opacities. Ground-glass pulmonary opacity have decreased, while solid pulmonary opacities have increased. Differential consideration includes ongoing atypical infection, pulmonary edema, or aspiration. Pulmonary hemorrhage is less likely. Consider three month follow-up to document resolution. 3. Numerous pulmonary nodules within bilateral lower lobes are new since previous examination. This could be seen in setting of atypical infection or aspiration. Attention on follow-up examination is recommended. RECOMMENDATIONS: Follow-up chest CT in 3 months to document resolution and/or evaluation of above changes. D/ : / 04/13/2018 16:47:48 Bernard Bauer MD / zain Interpreting Provider: Bernard Bauer MD Echocardiogram 04/14/18 00:44 Impressions: LVEF 60-65%. Normal LV chamber size, wall thickness and function. Normal left ventricular diastolic function. Normal right ventricular structure and function. PFO with right to left shunt. Mild mitral regurgitation. No evidence of pulmonary hypertension. Left Ventricular Wall Motion: Rest Echo Findings All wall segments showed normal motion. Findings: Study Quality * Technically adequate exam. ECG Findings * Sinus tachycardia. Left Ventricle * LVEF 60-65%. * Normal LV chamber size, wall thickness and function. * Normal left ventricular diastolic function. Right Ventricle * Normal right ventricular structure and function. Left Atrium * Normal left atrial size. Right Atrium * Normal right atrial size. Interatrial Septum * PFO with right to left shunt. Aortic Valve * Trileaflet aortic valve. * Normal aortic valve structure. * No aortic regurgitation. * No aortic stenosis. Mitral Valve * Normal mitral valve structure. * No mitral stenosis. * Mild mitral regurgitation. Tricuspid Valve * Trace tricuspid regurgitation. * No tricuspid stenosis. * Normal tricuspid valve structure. * No evidence of pulmonary hypertension. Pulmonic Valve * Normal pulmonic valve structure. * No pulmonic regurgitation. Aorta * Normally sized aortic root. Pericardium * The pericardium appears normal. IVC * Normal IVC dimensions and inspiratory collapse. Pulmonary Artery * Normal visualized portions of the main pulmonary artery. - Attending Attestation I have seen and assessed this patient and I agree with plan per resident as above Plan Recurrent Multifocal pneumonia. CT chest showing multiple ground glass opacities. continue antibiotics and steroids. Pulm consult and recs appreciated <Bud Alvarado S - Last Filed: 04/14/18 09:27> (3) Nicotine dependence Qualifiers: Nicotine product type: cigarettes Substance use status: uncomplicated Qualified Code(s): F17.210 - Nicotine dependence, cigarettes, uncomplicated <Ana Courtney - Last Filed: 04/14/18 14:55> (2) Nicotine dependence Qualifiers: Nicotine product type: cigarettes Substance use status: uncomplicated Qualified Code(s): F17.210 - Nicotine dependence, cigarettes, uncomplicated
[2018-04-14] MEDS: *HR* LORazepam 2 MG/ML VIAL IVP PRN ×3 (12:31→21:04)
[2018-04-14 12:43] LABS: Troponin I < 0.03 ng/mL (< 0.04)
--- NOTE | 2018-04-14 16:14 | Electrocardiograph Report ---
[address] [place] [address] Test Date: 2018-04-14 Pat Name: Mayuri Miguel Department: 115 Room: 3A16 Gender: F Evening Anchor: : 1990 Requested By: Joceline Goyal Order Number: [id number] Reading MD: Loi Ross Measurements Intervals [place] Rate: 62 P: 50 IN: 138 QRS: 69 QRSD: 82 T: 67 QT: 409 QTc: 413 Interpretive Statements SINUS RHYTHM NONSPECIFIC T-WAVE ABNORMALITY Electronically Signed On 04-14-2018 16:12:29 EST by Loi Ross
[2018-04-14] MEDS: Levofloxacin 750 MG/150 ML 750 MG/150 ML BAG IVPB SCH (20:37)
--- NOTE | 2018-04-14 20:49 | Electrocardiograph Report ---
[facility] Test Date: 2018-04-13 Pat Name: Mayuri Miguel Department: [id number] Room: 3A16 Gender: F Ophthalmic Dispenser: : 1990 Requested By: Clarke Russo Order Number: [id number] Reading MD: Jennifer Cheema Measurements Intervals [place] Rate: 122 P: 74 PA: 145 QRS: 75 QRSD: 76 T: 50 QT: 328 QTc: 468 Interpretive Statements Sinus tachycardia Consider right atrial enlargement Borderline T abnormalities, anterior leads Electronically Signed On 04-14-2018 20:47:24 EST by Jennifer Cheema
[2018-04-14] MEDS ORDERED: Ondansetron 4 MG/2 ML VIAL IVP PRN (21:57)
[2018-04-15] MEDS: 0.9 % Sodium Chloride 1,000 ML IVC SCH ×3 (00:04→20:27)
[2018-04-15] MEDS: Piperacillin/Tazobactam 3.375 GM in 0.9 % Sodium Chloride Mini Bag 100 ML IVPB SCH ×3 (00:06→16:47)
[2018-04-15 00:42] LABS: Basophils % 0.1 %; Lymphocytes # 0.9 K/mcL (0.6-4.6); Mean Corpuscular Hemoglobin 23.7 pg (28.0-33.3); Mean Corpuscular Volume 79.2 fL (83.0-100.0); Mean Platelet Volume 9.9 fL (9.4-12.4); Monocytes # 0.9 K/mcL (0.0-1.3); Monocytes % 4.1 %; Neutrophils # 20.7 K/mcL (1.6-8.9); Platelet Count 260 K/mcL (140-400); Red Blood Count 3.79 M/mcL (3.82-4.97); Red Cell Distribution Width 19.6 % (11.5-14.5); Segmented Neutrophils % 90.8 %
[2018-04-15 01:01] LABS: BUN/Creatinine Ratio 13 (6-26); Blood Urea Nitrogen 5 mg/dL (6-20); Calcium 8.9 mg/dL (8.6-10.3); Carbon Dioxide 25 mEq/L (23-29); Chloride 106 mEq/L (98-107); Glucose 226 mg/dL (70-105); Osmolality,Calculated 292 (280-300); Sodium 139 mEq/L (136-145); eGFR For Non-African Americans > 60 (> 60)
[2018-04-15] MEDS: Ipratropium/Albuterol Neb 3 ML IH SCH ×6 (03:41→23:41)
[2018-04-15] MEDS: *HR* Heparin 5,000 UNIT/ML VIAL SQ SCH ×3 (05:26→20:26)
[2018-04-15] MEDS: MethylPREDNISolone 40 MG/ML VIAL IVP SCH (05:26)
[2018-04-15] MEDS: Nicotine 14 MG PATCH.TD24 TD SCH (08:55)
[2018-04-15] MEDS ORDERED: *HR* Propofol 200 MG/20 ML VIAL IVP ONE (09:30)
[2018-04-15] MEDS ORDERED: Lidocaine -MPF 2% 2 ML VIAL ONE (09:30)
--- NOTE | 2018-04-15 09:37 | Anesthesia Evaluation PreOp ---
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 OPERATOR History: Denies Any Significant HX Other Medical History: Denies Any Significant HX Anesthesia History: No Prior Anesthetic Complications, Past Anesthesia Test: Negative (04/15/2018) Alcohol Use: none Drug use: other (H/O heroin use by snorting x 1 year, stopped 2 months ago--on methadone; H/O pain pill abuse prior to heroin) Medications and Allergies Acetaminophen [Tylenol] 325 mg PO Q6HR PRN 03/23/18 [History] Gabapentin [Neurontin] 100 mg PO TID 03/23/18 [History] Methadone 90 mg PO 0730 03/23/18 [History] Albuterol Sulfate [Albuterol Inhaler] 2 puff IH Q4HR PRN 04/09/18 [History] Promethazine/Codeine [Phenergan/Codeine] 5 ml PO Q6HR PRN 5 Days #100 udc 04/12/18 [Rx] levoFLOXacin [Levaquin] 750 mg PO DAILY #7 tablet 04/12/18 [Rx] Allergy/AdvReac Type Severity Reaction Status Date / Time No Known Allergies Allergy Verified 04/13/18 12:03 - Meds/Allergy Pre-op Review Medications Reviewed: Yes Allergies Reviewed: Yes Beta Blockers on Current Med List: No Anesthesia Results - Labs 04/15/18 00:31 04/15/18 00:31 - Imaging EKG: report reviewed (04/14/2018 SINUS RHYTHM NONSPECIFIC T-WAVE ABNORMALITY) Additional studies: 04/14/2018 Echo Impressions: LVEF 60-65%. Normal LV chamber size, wall thickness and function. Normal left ventricular diastolic function. Normal right ventricular structure and function. PFO with right to left shunt. Mild mitral regurgitation. No evidence of pulmonary hypertension. Anesthesia Exam Vital Signs/O2 Sat, Most Current Temp Pulse Resp BP Pulse Ox 98.4 F 78 16 112/57 97 04/15/18 07:56 04/15/18 09:34 04/15/18 09:34 04/15/18 09:34 04/15/18 09:34 Height: 4'1''/1.5m Weight: 125 lbs/56.8 kg NPO (# of Hours): 8 Pain Scale: 0 Pain Scale Used: Numeric (1 - 10) - HEENT Pupil (Motor): EOMI Mallampati: II Teeth: Edentulous Oral Opening: Greater than 3 - COAL HAULER OPERATOR LOC: Oriented COAL HAULER OPERATOR Motor: Normal RUE, Normal LUE, Normal RLE, Normal LLE, Normal Face COAL HAULER OPERATOR Sensory: Normal: RUE, LUE, RLE, LLE, Face - Cardiac Rhythm: Regular Murmur: Systolic - Pulmonary Breath Sounds: bilateral Clear Respiratory Effort: Symmetrical Anesthesia Assess/Plan ASA Score: 3 Level of consciousness: Cooperative, Oriented, Tranquil Anesthetic Plan: MAC Monitoring Plan: Standard Monitors
[2018-04-15] MEDS: Folic Acid 1 MG TABLET PO SCH (11:06)
[2018-04-15] MEDS: *HR* Methadone 10 MG TABLET PO SCH (11:06)
[2018-04-15 13:00] LABS: Appearance of Body Fluid Cloudy (Clear); Volume of Body Fluid 6 mL
--- NOTE | 2018-04-15 14:00 | Internal Med Progress Note ---
<BeraúlYun cid E - Last Filed: 04/15/18 15:14> Hospitalist Progress Note - Encounter Date of Encounter: 04/15/18 Time of Encounter: 01:00 - Subjective Interval History: MS. Miguel was seen at bedside today. She was awake and eating lunch. She states that she is feeling a bit better with less shortness of breath but still is coughing quite a bit. She states she does not want to leave until she knows what is going on with her lungs because she is worried. We talked about how long it would take to get her results back. - Exam Vitals: Temp Pulse Resp BP Pulse Ox 98.5 F 102 15 102/61 96 04/15/18 13:32 04/15/18 13:32 04/15/18 13:32 04/15/18 13:32 04/15/18 13:32 Exam: General: AAOx3, answers questions appropriately, no distress Cardio: RRR, no murmur, rubs, or gallops Pulm: Wheezing throughout both lungs, some crackles in both lower lobes Abdominal: normal bowel sounds, no rigidity or gaurding Extremities: no pedal edema, pulses equal in all 4 extremities Skin: warm, dry, intact - Assessment and Plan (1) Multifocal pneumonia Current Visit: Yes Status: Acute Assessment and Plan: Bronchoscopy with washigns adn cultures done today- will watch for results keep O2 sat above 92% blood cx pending continue vancomycin, zosyn, levaquin day 3 - duonebs q4hr - solumedrol discontinued - ID consult considered due to recurrent pneumonia (2) History of substance abuse Current Visit: No Status: Acute Assessment and Plan: UDS positive for opiates and amphetamines continue methadone dosage as confirmed by pharmacist methadone 90mg PO daily (3) Poor social situation Current Visit: Yes Status: Acute Assessment and Plan: [facility] in [facility], case management and SW to see (4) Nicotine dependence Current Visit: No Status: Acute Assessment and Plan: nicotine patch (5) Hypokalemia Current Visit: Yes Status: Resolved Assessment and Plan: continue to monitor DVT Prophylaxis: heparin subq - Time Spent with Patient Total time spent is greater than 50% in coordination of care (as documented) at patient's floor/unit and/or counseling patient: Plan of Care Discussed with: patient Internal Medicine: Result - Labs CBC & Chem 7: 04/15/18 00:31 04/15/18 00:31 Labs: Short CBC 04/15/18 Range/Units 00:31 WBC 22.8 H D (4.3-11.1) K/mcL Hgb 9.0 L (11.5-15.4) g/dL Hct 30.0 L (35.3-44.9) % Plt Count 260 (140-400) K/mcL Neutrophils # 20.7 H (1.6-8.9) K/mcL BMP 04/15/18 00:31 Sodium 139 Potassium 4.0 Chloride 106 Carbon Dioxide 25 BUN 5 L Creatinine 0.40 L Glucose 226 H Calcium 8.9 - Impressions Impressions Echocardiogram 04/14/18 00:44 Impressions: LVEF 60-65%. Normal LV chamber size, wall thickness and function. Normal left ventricular diastolic function. Normal right ventricular structure and function. PFO with right to left shunt. Mild mitral regurgitation. No evidence of pulmonary hypertension. Left Ventricular Wall Motion: Rest Echo Findings All wall segments showed normal motion. Findings: Study Quality * Technically adequate exam. ECG Findings * Sinus tachycardia. Left Ventricle * LVEF 60-65%. * Normal LV chamber size, wall thickness and function. * Normal left ventricular diastolic function. Right Ventricle * Normal right ventricular structure and function. Left Atrium * Normal left atrial size. Right Atrium * Normal right atrial size. Interatrial Septum * PFO with right to left shunt. Aortic Valve * Trileaflet aortic valve. * Normal aortic valve structure. * No aortic regurgitation. * No aortic stenosis. Mitral Valve * Normal mitral valve structure. * No mitral stenosis. * Mild mitral regurgitation. Tricuspid Valve * Trace tricuspid regurgitation. * No tricuspid stenosis. * Normal tricuspid valve structure. * No evidence of pulmonary hypertension. Pulmonic Valve * Normal pulmonic valve structure. * No pulmonic regurgitation. Aorta * Normally sized aortic root. Pericardium * The pericardium appears normal. IVC * Normal IVC dimensions and inspiratory collapse. Pulmonary Artery * Normal visualized portions of the main pulmonary artery. Consult Discharge Plan - Plan Referrals: Angie Jeff [Primary Care Provider] - <Ana Courtney - Last Filed: 04/15/18 16:51> Hospitalist Progress Note - Encounter Date of Encounter: 04/15/18 - Exam Vitals: Temp Pulse Resp BP Pulse Ox 98.2 F 99 14 98/60 97 04/15/18 14:05 04/15/18 14:05 04/15/18 14:05 04/15/18 14:05 04/15/18 14:05 - Assessment and Plan (1) History of substance abuse Current Visit: No Status: Acute (2) Nicotine dependence Current Visit: No Status: Acute (3) DVT prophylaxis Current Visit: No Status: Acute (4) Multifocal pneumonia Current Visit: Yes Status: Acute (5) Poor social situation Current Visit: Yes Status: Acute (6) Hypokalemia Current Visit: Yes Status: Resolved - Time Spent with Patient Total time spent is greater than 50% in coordination of care (as documented) at patient's floor/unit and/or counseling patient: Internal Medicine: Result - Labs CBC & Chem 7: 04/15/18 00:31 04/15/18 00:31 Labs: Short CBC 04/15/18 Range/Units 00:31 WBC 22.8 H D (4.3-11.1) K/mcL Hgb 9.0 L (11.5-15.4) g/dL Hct 30.0 L (35.3-44.9) % Plt Count 260 (140-400) K/mcL Neutrophils # 20.7 H (1.6-8.9) K/mcL BMP 04/15/18 00:31 Sodium 139 Potassium 4.0 Chloride 106 Carbon Dioxide 25 BUN 5 L Creatinine 0.40 L Glucose 226 H Calcium 8.9 - Attending Attestation I have seen and assessed this patient and I agree with plan per resident as above Plan Recurrent Multifocal pneumonia. CT chest showing multiple ground glass opacities. continue antibiotics and steroids. s/p bronchoscopy today. Await BAL. continue current plan of care <[place],Yun E - Last Filed: 04/15/18 15:14> (4) Nicotine dependence Qualifiers: Nicotine product type: cigarettes Substance use status: uncomplicated Qualif ied Code(s): F17.210 - Nicotine dependence, cigarettes, uncomplicated <Ana Courtney A - Last Filed: 04/15/18 16:51> (2) Nicotine dependence Qualifiers: Nicotine product type: cigarettes Substance use status: uncomplicated Qualified Code(s): F17.210 - Nicotine dependence, cigarettes, uncomplicated
[2018-04-15] MEDS: Acetaminophen 325 MG TABLET PO PRN (14:47)
[2018-04-15] MEDS: Levofloxacin 750 MG/150 ML 750 MG/150 ML BAG IVPB SCH (20:26)
[2018-04-15] MEDS: *HR* LORazepam 0.5 MG TABLET PO PRN (20:26)
[2018-04-16] MEDS: Piperacillin/Tazobactam 3.375 GM in 0.9 % Sodium Chloride Mini Bag 100 ML IVPB SCH ×3 (00:59→17:07)
[2018-04-16] MEDS: Ipratropium/Albuterol Neb 3 ML IH SCH ×6 (03:43→23:55)
[2018-04-16 04:45] LABS: Basophils % 0.2 %; Eosinophils % 0.2 %; Hematocrit 26.3 % (35.3-44.9); Hemoglobin 7.8 g/dL (11.5-15.4); Immature Granulocytes % 0.5 % (0-4); Lymphocytes # 3.2 K/mcL (0.6-4.6); Lymphocytes % 27.7 %; Mean Corpuscular HGB Conc 29.7 g/dL (31.6-35.5); Mean Corpuscular Hemoglobin 23.7 pg (28.0-33.3); Mean Corpuscular Volume 79.9 fL (83.0-100.0); Monocytes # 0.9 K/mcL (0.0-1.3); Monocytes % 8.1 %; Neutrophils # 7.4 K/mcL (1.6-8.9); Platelet Count 246 K/mcL (140-400); Red Blood Count 3.29 M/mcL (3.82-4.97); Red Cell Distribution Width 20.4 % (11.5-14.5); Segmented Neutrophils % 63.3 %
[2018-04-16 05:01] LABS: Alanine Aminotransferase 15 Units/L (7-52); Albumin 2.8 g/dL (3.5-5.7); Albumin/Globulin Ratio 1.2 (1.1-2.2); Alkaline Phosphatase 54 Units/L (34-104); Aspartate Amino Transferase 12 Units/L (13-39); BUN/Creatinine Ratio 20 (6-26); Bilirubin,Total 0.2 mg/dL (0.3-1.0); Blood Urea Nitrogen 11 mg/dL (6-20); Calcium 8.1 mg/dL (8.6-10.3); Carbon Dioxide 29 mEq/L (23-29); Chloride 108 mEq/L (98-107); Globulin 2.3 g/dL (2.4-3.5); Glucose 98 mg/dL (70-105); Osmolality,Calculated 293 (280-300); Potassium 3.8 mEq/L (3.5-5.1); Sodium 142 mEq/L (136-145); Total Protein 5.1 g/dL (6.4-8.9); eGFR For Non-African Americans > 60 (> 60)
[2018-04-16] MEDS: *HR* Heparin 5,000 UNIT/ML VIAL SQ SCH ×3 (05:11→23:21)
--- NOTE | 2018-04-16 07:15 | Pulmonology Progress Note ---
Date of Encounter: 04/16/18 Time of Encounter: 07:15 Assessment and Plan (1) Multifocal pneumonia Current Visit: Yes Status: Acute The patient has evidence of multifocal upper lobe predominant opacities. Bronchoscopy yesterday was notable fourth mucoid secretions throughout the tracheobronchial tree with notable black substance mixed in with the mucus I suspect this is related inhalation injury from illicit substance patient confirms that she has been snorting methamphetamine prior to admission. Possibly but less likely given her drug use and living situation could be aspergillus. I have sent off serologies for fungal infection and alerted the pathology Department that we are considering a fungal infection in this patient although again this is much less likely I think it is reasonable to continue her steroids and Levaquin pending final cu lture If there is no evidence of fungal infection I would recommend a course of steroids - but most importantly for her its can be stop using illicit substances that have the propensity of damaging her lungs including tobacco abuse. Pulmonary will continue to follow (2) History of substance abuse Current Visit: No Status: Acute (3) Nicotine dependence Current Visit: No Status: Acute Qualifiers: Nicotine product type: cigarettes Substance use status: uncomplicated Qualified Code(s): F17.210 - Nicotine dependence, cigarettes, uncomplicated Subjective Principal diagnosis: Pneumonia Interval history: No acute events overnight she says that she is generally feeling better underwent bronchoscopy yesterday without any untoward effect denies coughing up any phlegm or hemoptysis. She is been afebrile and otherwise hemodynamically stable Objective PUL Vital signs: Last Vital Signs Temp 98.5 F 04/16/18 07:08 Pulse 88 04/16/18 07:08 Resp 14 04/16/18 07:08 BP 118/78 04/16/18 07:08 Pulse Ox 95 04/16/18 07:08 General appearance: no acute distress Eyes: nonicteric ENT: oropharynx moist Neck: supple Auscultation: bilateral: rhonchi Cardiovascular: regular rate and rhythm Gastrointestinal: normoactive bowel sounds Integumentary: normal Extremities: no cyanosis, no edema, no clubbing Musculoskeletal: no deformities normal mental status, non-focal exam mood appropriate Results - Laboratory Findings CBC and BMP: 04/16/18 04:21 04/16/18 04:21 Abnormal lab findings: Abnormal lab results WBC 11.6 K/mcL (4.3-11.1) H 04/16/18 04:21 RBC 3.29 M/mcL (3.82-4.97) L 04/16/18 04:21 Hgb 7.8 g/dL (11.5-15.4) L 04/16/18 04:21 Hct 26.3 % (35.3-44.9) L 04/16/18 04:21 MCV 79.9 fL (83.0-100.0) L 04/16/18 04:21 MCH 23.7 pg (28.0-33.3) L 04/16/18 04:21 MCHC 29.7 g/dL (31.6-35.5) L 04/16/18 04:21 RDW 20.4 % (11.5-14.5) H 04/16/18 04:21 Chloride 108 mEq/L (98-107) H 04/16/18 04:21 Creatinine 0.56 mg/dL (0.60-1.20) L 04/16/18 04:21 Calcium 8.1 mg/dL (8.6-10.3) L 04/16/18 04:21 Total Bilirubin 0.2 mg/dL (0.3-1.0) L 04/16/18 04:21 AST 12 Units/L (13-39) L 04/16/18 04:21 Serum Total Protein 5.1 g/dL (6.4-8.9) L 04/16/18 04:21 Albumin 2.8 g/dL (3.5-5.7) L 04/16/18 04:21 Globulin 2.3 g/dL (2.4-3.5) L 04/16/18 04:21 Ur Specific [place] 1.029 (1.010-1.025) H 04/13/18 22:15 Fluid Appearance Cloudy (Clear) A 04/15/18 10:24 Vancomycin Trough 3 mcg/mL (5-10) L 04/15/18 12:23 Urine Opiates Screen Positive ng/mL (Vjcymf=603) H 04/13/18 22:15 Ur Amphetamines Screen Positive ng/mL (Ekiezx=7888) H 04/13/18 22:15 - Microbiology Findings Microbiology Findings: Microbiology, Last 48 Hours 04/15/18 10:00 Respiratory Culture - Preliminary Right Upper Lobe Lung 04/15/18 10:00 Respiratory Culture - Preliminary Bronchial Washings 04/15/18 10:00 Respiratory Culture - Preliminary Left Upper Lobe Lung 04/14/18 00:30 Sputum Culture - Preliminary Sputum - Clinical Findings Intake & Output: Intake & Output 04/15/18 04/15/18 04/16/18 15:59 23:59 07:59 Intake Total 1580 / 1580 1470 / 1470 300 / 300 Output Total 600 / 600 0 / 0 Balance 980 / 980 1470 / 1470 300 / 300 Weight 55.3 kg Consult Discharge Plan - Plan Referrals: Angie Jeff [Primary Care Provider] -
[2018-04-16] MEDS: Folic Acid 1 MG TABLET PO SCH (08:29)
[2018-04-16] MEDS: *HR* Methadone 10 MG TABLET PO SCH (08:29)
[2018-04-16] MEDS: Nicotine 14 MG PATCH.TD24 TD SCH (08:29)
[2018-04-16] MEDS: 0.9 % Sodium Chloride 1,000 ML IVC SCH ×3 (08:30→20:30)
[2018-04-16] MEDS: Acetaminophen 325 MG TABLET PO PRN ×2 (08:44→23:35)
--- NOTE | 2018-04-16 11:01 | Internal Med Progress Note ---
<BeraúlParesh cidYun E - Last Filed: 04/16/18 13:18> Hospitalist Progress Note - Encounter Date of Encounter: 04/16/18 Time of Encounter: 10:00 - Subjective Interval History: MS. Miguel was seen at bedside today. She was awake and alert. Concerned abotu what this could be, we spoke bout this. WE also spoke abotu smoking cessation. She denies pain and says her breathing is better. - Exam Vitals: Temp Pulse Resp BP Pulse Ox 98 F 83 13 107/67 97 04/16/18 10:42 04/16/18 10:42 04/16/18 10:42 04/16/18 10:42 04/16/18 10:42 Exam: General: AAOx3, answers questions appropriately, no distress Cardio: RRR, no murmur, rubs, or gallops Pulm: Soem wheezing in both upper lobes on expiration, no rales, crackles Abdominal: normal bowel sounds, no rigidity or gaurding Extremities: no pedal edema, pulses equal in all 4 extremities Skin: warm, dry, intact - Assessment and Plan (1) Multifocal pneumonia Current Visit: Yes Status: Acute Assessment and Plan: Bronchoscopy with washigns adn cultures done today- will watch for results keep O2 sat above 92% blood cx pending continue vancomycin, zosyn, levaquin day 4 - duonebs q4hr - solumedrol discontinued (2) History of substance abuse Current Visit: No Status: Acute Assessment and Plan: UDS positive for opiates and amphetamines, denies any drug use for 2.5 months continue methadone dosage as confirmed by pharmacist methadone 90mg PO daily (3) Poor social situation Current Visit: Yes Status: Acute Assessment and Plan: LIves in intermediate, case management and SW to see (4) Nicotine dependence Current Visit: No Status: Acute Assessment and Plan: nicotine dependence (5) Hypokalemia Current Visit: Yes Status: Resolved Assessment and Plan: continue to monitor DVT Prophylaxis: heparin subq - Time Spent with Patient Total time spent is greater than 50% in coordination of care (as documented) at patient's floor/unit and/or counseling patient: Plan of Care Discussed with: patient Internal Medicine: Result - Labs CBC & Chem 7: 04/16/18 04:21 04/16/18 04:21 Labs: Short CBC 04/16/18 Range/Units 04:21 WBC 11.6 H (4.3-11.1) K/mcL Hgb 7.8 L (11.5-15.4) g/dL Hct 26.3 L (35.3-44.9) % Plt Count 246 (140-400) K/mcL Neutrophils # 7.4 (1.6-8.9) K/mcL BMP 04/16/18 04:21 Sodium 142 Potassium 3.8 Chloride 108 H Carbon Dioxide 29 BUN 11 Creatinine 0.56 L Glucose 98 Calcium 8.1 L Liver Function 04/16/18 Range/Units 04:21 Total Bilirubin 0.2 L (0.3-1.0) mg/dL AST 12 L (13-39) Units/L ALT 15 (7-52) Units/L Alkaline Phosphatase 54 (34-104) Units/L Albumin 2.8 L (3.5-5.7) g/dL Consult Discharge Plan - Plan Referrals: Angie Jfef [Primary Care Provider] - <Ana Courtney - Last Filed: 04/16/18 17:55> Hospitalist Progress Note - Encounter Date of Encounter: 04/16/18 - Exam Vitals: Temp Pulse Resp BP Pulse Ox 98.2 F 71 16 129/82 98 04/16/18 15:12 04/16/18 15:12 04/16/18 15:52 04/16/18 15:12 04/16/18 15:52 - Assessment and Plan (1) History of substance abuse Current Visit: No Status: Acute (2) Nicotine dependence Current Visit: No Status: Acute (3) DVT prophylaxis Current Visit: No Status: Acute (4) Multifocal pneumonia Current Visit: Yes Status: Acute (5) Poor social situation Current Visit: Yes Status: Acute (6) Hypokalemia Current Visit: Yes Status: Resolved - Time Spent with Patient Total time spent is greater than 50% in coordination of care (as documented) at patient's floor/unit and/or counseling patient: Internal Medicine: Result - Labs CBC & Chem 7: 04/16/18 04:21 04/16/18 04:21 Labs: Short CBC 04/16/18 Range/Units 04:21 WBC 11.6 H (4.3-11.1) K/mcL Hgb 7.8 L (11.5-15.4) g/dL Hct 26.3 L (35.3-44.9) % Plt Count 246 (140-400) K/mcL Neutrophils # 7.4 (1.6-8.9) K/mcL BMP 04/16/18 04:21 Sodium 142 Potassium 3.8 Chloride 108 H Carbon Dioxide 29 BUN 11 Creatinine 0.56 L Glucose 98 Calcium 8.1 L Liver Function 04/16/18 Range/Units 04:21 Total Bilirubin 0.2 L (0.3-1.0) mg/dL AST 12 L (13-39) Units/L ALT 15 (7-52) Units/L Alkaline Phosphatase 54 (34-104) Units/L Albumin 2.8 L (3.5-5.7) g/dL - Attending Attestation I have seen and assessed this patient and I agree with plan per resident as above Plan Recurrent Multifocal pneumonia. CT chest showing multiple ground glass op acities. continue antibiotics and steroids. s/p bronchoscopy notable for fourth mucoid secretions throughout the tracheobronchial tree with notable black substance mixed in with the mucus. Likely related to snorting meth. Continue steroids and levaquin. Will d/c vanc and zosyn. Awaiting fungal cultures. Pulmonary following <Yun Vega E - Last Filed: 04/16/18 13:18> (4) Nicotine dependence Qualifiers: Nicotine product type: cigarettes Substance use status: uncomplicated Qualified Code(s): F17.210 - Nicotine dependence, cigarettes, uncomplicated <FolevanmiSupo A - Last Filed: 04/16/18 17:55> (2) Nicotine dependence Qualifiers: Nicotine product type: cigarettes Substance use status: uncomplicated Qualified Code(s): F17.210 - Nicotine dependence, cigarettes, uncomplicated
[2018-04-16] MEDS: MethylPREDNISolone 40 MG/ML VIAL IVP SCH ×3 (11:40→23:21)
[2018-04-16 12:42] LABS: Mycoplasma pneumoniae IgG 0.76 U/L (<=0.09)
[2018-04-16 12:58] LABS: ANA IgG by ELISA NONE DETECTED (None Detected); Myeloperoxidase Ab 0 AU/mL (0-19); Serine Protease-3 Antibody 1 AU/mL (0-19)
[2018-04-16] MEDS: *HR* LORazepam 0.5 MG TABLET PO PRN (14:18)
--- NOTE | 2018-04-16 16:33 | Electrocardiograph Report ---
[place] [id number] Test Date: 2018-04-14 Pat Name: Mayuri Miguel Department: 115 Room: 3A16 Gender: F [employer]: : [id number] Requested By: Ana Courtney Order Number: [id number] Reading MD: Loi Ross Measurements Intervals [place] Rate: 119 P: 70 HI: 108 QRS: 62 QRSD: 86 T: 71 QT: 359 QTc: 429 Interpretive Statements SINUS TACHYCARDIA WITH SHORT HI INTERVAL ABNORMAL RHYTHM ECG Electronically Signed On 04-16-2018 16:32:22 EST by Loi Ross
[2018-04-17 03:14] LABS: Basophils % 0.1 %; Hematocrit 30.1 % (35.3-44.9); Lymphocytes # 0.8 K/mcL (0.6-4.6); Mean Corpuscular HGB Conc 29.9 g/dL (31.6-35.5); Mean Corpuscular Hemoglobin 23.5 pg (28.0-33.3); Mean Corpuscular Volume 78.6 fL (83.0-100.0); Mean Platelet Volume 10.1 fL (9.4-12.4); Monocytes # 0.1 K/mcL (0.0-1.3); Monocytes % 1.4 %; Neutrophils # 7.9 K/mcL (1.6-8.9); Platelet Count 274 K/mcL (140-400); Red Blood Count 3.83 M/mcL (3.82-4.97); Red Cell Distribution Width 20.3 % (11.5-14.5); Segmented Neutrophils % 87.5 %
[2018-04-17 03:34] LABS: BUN/Creatinine Ratio 16 (6-26); Blood Urea Nitrogen 8 mg/dL (6-20); Calcium 8.7 mg/dL (8.6-10.3); Carbon Dioxide 30 mEq/L (23-29); Chloride 101 mEq/L (98-107); Glucose 260 mg/dL (70-105); Osmolality,Calculated 293 (280-300); Potassium 3.7 mEq/L (3.5-5.1); Sodium 138 mEq/L (136-145); eGFR For Non-African Americans > 60 (> 60)
[2018-04-17] MEDS: Ipratropium/Albuterol Neb 3 ML IH SCH ×3 (03:37→11:09)
[2018-04-17] MEDS: *HR* Heparin 5,000 UNIT/ML VIAL SQ SCH (06:19)
[2018-04-17 06:33] VITALS: BP 147/79
--- NOTE | 2018-04-17 07:49 | Internal Med Progress Note ---
Hospitalist Progress Note - Encounter Date of Encounter: 04/17/18 Time of Encounter: 08:00 - Exam Vitals: Temp Pulse Resp BP Pulse Ox 98.7 F 88 16 147/79 95 04/17/18 06:29 04/17/18 06:29 04/17/18 07:34 04/17/18 06:29 04/17/18 07:34 Exam: General: AAOx3, answers questions appropriately, no distress Cardio: RRR, no murmur, rubs, or gallops Pulm: CTAB Abdominal: normal bowel sounds, no rigidity or gaurding Extremities: no pedal edema, pulses equal in all 4 extremities Skin: warm, dry, intact - Assessment and Plan (1) Multifocal pneumonia Current Visit: Yes Status: Acute Assessment and Plan: Pt has had multiple episodes of pneumonia - Bronchoscopy with washings and cultures done Per pulmonary can follow up in 4-6 weeks for cultures. Discharge on levaquin and tapering course of steroids (2) History of substance abuse Current Visit: No Status: Acute Assessment and Plan: UDS positive for opiates and amphetamines - continue methadone dosage as confirmed by pharmacist - methadone 90mg PO daily (3) Nicotine dependence Current Visit: No Status: Acute Assessment and Plan: Nicotine patch - current everyday smoker - counsled on the risks of lung cancer and from smoking (4) DVT prophylaxis Current Visit: No Status: Acute Assessment and Plan: Heparin subcutaneous (5) Poor social situation Current Visit: Yes Status: Acute Assessment and Plan: Lives in [facility] - case management and SW to see (6) Hypokalemia Current Visit: Yes Status: Resolved Assessment and Plan: Replaced - Time Spent with Patient Total time spent is greater than 50% in coordination of care (as documented) at patient's floor/unit and/or counseling patient: Internal Medicine: Result - Labs CBC & Chem 7: 04/17/18 02:37 04/17/18 02:37 Labs: Short CBC 04/17/18 Range/Units 02:37 WBC 9.1 (4.3-11.1) K/mcL Hgb 9.0 L (11.5-15.4) g/dL Hct 30.1 L (35.3-44.9) % Plt Count 274 (140-400) K/mcL Neutrophils # 7.9 (1.6-8.9) K/mcL BMP 04/17/18 02:37 Sodium 138 Potassium 3.7 Chloride 101 Carbon Dioxide 30 H BUN 8 Creatinine 0.50 L Glucose 260 H Calcium 8.7 Consult Discharge Plan - Plan Referrals: Halle Contreras MD [Partnered Physician] - (Web-requested, office will call the patient to schedule a follow-up. ) Angie Jeff [Primary Care Provider] - (Patient will have to call to schedule follow-up. ) Prescriptions: levoFLOXacin [Levaquin] 750 mg PO DAILY 5 Days #5 tablet Nicotine Patch [Nicoderm] 14 mg TD DAILY 30 Days #30 patch.td24 predniSONE [PredniSONE] 40 mg PO DAILY 3 Days #6 tablet (3) Nicotine dependence Qualifiers: Nicotine product type: cigarettes Substance use status: uncomplicated Qualified Code(s): F17.210 - Nicotine dependence, cigarettes, uncomplicated
[2018-04-17] MEDS: *HR* Methadone 10 MG TABLET PO SCH (08:33)
[2018-04-17] MEDS: Folic Acid 1 MG TABLET PO SCH (08:33)
[2018-04-17] MEDS: Nicotine 14 MG PATCH.TD24 TD SCH (08:45)
[2018-04-17] MEDS ORDERED: predniSONE 20 MG TABLET PO SCH (09:00)
[2018-04-17] MEDS ORDERED: levoFLOXacin 750 MG TABLET PO SCH (09:00)
--- NOTE | 2018-04-17 09:50 | Pulmonology Progress Note ---
Date of Encounter: 04/17/18 Time of Encounter: 09:30 Assessment and Plan (1) Multifocal pneumonia Status: Acute Patient presented with multifocal pneumonia with substance abuse in the past she does use her own rolled tobacco and she is homeless presented with this multifocal groundglass opacity with some suspicion for inflammatory pneumonia BAL did not show any undue organism except for some yeast species after the bronchoscopy there was concern for aspergillus infection since this on the yeast species it can be a contaminant we will wait for the final cultures patient is back to her baseline to complete the short burst of steroid on discharge to complete 7 to 10 day course of levofloxacin and follow-up in pulmonology in 4-6 weeks. The plan was communicated with the primary hospitalist. Subjective Principal diagnosis: Pneumonia Interval history: Patient presenting with multifocal pneumonia and bronchoscopy with BAL cultures is not showing up much except for some yeast , BAL galactomannan is pending . She is back to her baseline wants to go home. Objective PUL Vital signs: Last Vital Signs Temp 98.7 F 04/17/18 06:29 Pulse 88 04/17/18 06:29 Resp 16 04/17/18 07:34 BP 147/79 04/17/18 06:29 Pulse Ox 95 04/17/18 07:34 Auscultation: bilateral: clear Results - Laboratory Findings CBC and BMP: 04/17/18 02:37 04/17/18 02:37 Abnormal lab findings: Abnormal lab results Hgb 9.0 g/dL (11.5-15.4) L 04/17/18 02:37 Hct 30.1 % (35.3-44.9) L 04/17/18 02:37 MCV 78.6 fL (83.0-100.0) L 04/17/18 02:37 MCH 23.5 pg (28.0-33.3) L 04/17/18 02:37 MCHC 29.9 g/dL (31.6-35.5) L 04/17/18 02:37 RDW 20.3 % (11.5-14.5) H 04/17/18 02:37 Carbon Dioxide 30 mEq/L (23-29) H 04/17/18 02:37 Creatinine 0.50 mg/dL (0.60-1.20) L 04/17/18 02:37 Glucose 260 mg/dL (70-105) H 04/17/18 02:37 Total Bilirubin 0.2 mg/dL (0.3-1.0) L 04/16/18 04:21 AST 12 Units/L (13-39) L 04/16/18 04:21 Serum Total Protein 5.1 g/dL (6.4-8.9) L 04/16/18 04:21 Albumin 2.8 g/dL (3.5-5.7) L 04/16/18 04:21 Globulin 2.3 g/dL (2.4-3.5) L 04/16/18 04:21 Ur Specific [place] 1.029 (1.010-1.025) H 04/13/18 22:15 Fluid Appearance Cloudy (Clear) A 04/15/18 10:24 Vancomycin Trough 3 mcg/mL (5-10) L 04/15/18 12:23 Urine Opiates Screen Positive ng/mL (Utrrki=409) H 04/13/18 22:15 Ur Amphetamines Screen Positive ng/mL (Thbxok=7182) H 04/13/18 22:15 Mycoplasma pneumon IgG 0.76 U/L (<=0.09) H 04/13/18 17:43 - Microbiology Findings Microbiology Findings: Microbiology, Last 48 Hours 04/15/18 10:00 Respiratory Culture - Preliminary Left Upper Lobe Lung Yeast Species 04/15/18 10:00 Respiratory Culture - Preliminary Bronchial Washings Yeast Species 04/15/18 10:00 Respiratory Culture - Preliminary Right Upper Lobe Lung Yeast Species 04/15/18 10:00 Acid Fast Stain - Final Left Upper Lobe Lung 04/15/18 10:00 Acid Fast Stain - Final Right Upper Lobe Lung 04/15/18 10:00 Acid Fast Stain - Final Bronchial Washings 04/14/18 00:30 Sputum Culture - Final Sputum - Clinical Findings Intake & Output: Intake & Output 04/16/18 04/17/18 04/17/18 23:59 07:59 15:59 Intake Total 2090 / 2090 340 / 340 1000 / 1000 Output Total 250 / 250 Balance 1840 / 1840 340 / 340 1000 / 1000 Weight 52.3 kg 52.4 kg Consult Discharge Plan - Plan Instructions: Sepsis (DC), Pneumonia (DC) Referrals: Halle Contreras MD [Partnered Physician] - (Web-requested, office will call the patient to schedule a follow-up. ) Angie Jeff [Primary Care Provider] - (Patient will have to call to schedule follow-up. ) Prescriptions: levoFLOXacin [Levaquin] 750 mg PO DAILY 5 Days #5 tablet Nicotine Patch [Nicoderm] 14 mg TD DAILY 30 Days #30 patch.td24 predniSONE [PredniSONE] 40 mg PO DAILY 3 Days #6 tablet
--- NOTE | 2018-04-17 10:20 | Discharge Summary ---
Orders not resulted at time of discharge: Pending orders 04/13/18 17:38 Culture,Blood [BC] Stat Culture,Blood [BC] Stat QuantiFERON-TB Gold In-Tube Stat 04/14/18 09:19 Complement Activity EIA, Total Stat Cryoglobulin Stat 04/15/18 10:00 AFB Culture, Respiratory [TB] Routine AFB Culture, Respiratory [TB] Routine AFB Culture, Respiratory [TB] Routine AFB Smear [TB] Routine AFB Smear [TB] Routine AFB Smear [TB] Routine Culture,Respiratory [RM] Routine Culture,Respiratory [RM] Routine Culture,Respiratory [RM] Routine Fungal Culture [MYC] Routine Fungal Culture [MYC] Routine Fungal Culture [MYC] Routine Herpes Simplex PCR Body Fl Routine Herpes Simplex PCR Body Fl Routine Legionella Culture [RM] Routine 04/15/18 10:11 Resp.Virus Panel,Body Fl Routine 04/15/18 10:17 Bronch Asper.galactomannan Stat 04/15/18 10:18 Cell Count w Diff, Body Fluid [BF] Routine Herpes Simplex PCR Body Fl Routine Resp.Virus Panel,Body Fl Routine 04/15/18 10:24 Bronch Asper.galactomannan Routine Resp.Virus Panel,Body Fl Routine Miscellaneous Lab Test Routine 04/15/18 10:29 Bronch Asper.galactomannan Routine Miscellaneous Lab Test Routine 04/15/18 10:47 Aspergillus Ab by CF Stat Aspergillus galactomannan Ag Stat Fungitell (1,3)-dxtd-S-Jmdcqh Stat 04/16/18 07:30 Histoplasma galactomannan,Ur Stat 04/18/18 04:00 BMP [Basic Metabolic Panel] AM 0400 Complete Blood Count [HEME] AM 0400 Date of Encounter: 04/17/18 Time of Encounter: 10:15 - Discharge Diagnosis (1) Multifocal pneumonia Priority: Primary Status: Acute Assessment and Plan: 27 year old current every day smoker, homeless female with recent admission for multifocal pneumonia discharged on 04/12 presented to the emergency department with complaint of shortness of breath. As per patient and documentation she is had nearly two-month history of respiratory symptoms where she has been to urgent care multiple times in the past 2 months and has received various antibiotics, inhalers and steroids for her shortness of breath. She reports that none of the medicines above have improved her symptoms and she continues to worsen. She reports that she has taken all the antibiotics, inhalers and steroids as prescribed and has finished all the course She was asssessed with multifocal pneumonia based on CT findings and started on broad spectrum antibiotics and steroids. Pulmonary was consulted and she had a bronchoscopy done showing fourth mucoid secretions throughout the tracheobronchial tree with notable black substance mixed in with the mucus. It is suspected this is related inhalation injury from illicit substance. Patient confirmed that she had been snorting methamphetamine prior to admission.serologies for fungal infection/ aspergillus has been sent. Patient has improved and per pulmonary can follow up in 4-6 weeks for cultures. Discharge on levaquin and tapering course of steroids (2) History of substance abuse Priority: Primary Status: Acute (3) Nicotine dependence Priority: Primary Status: Acute Qualifiers: Nicotine product type: cigarettes Substance use status: uncomplicated Qualified Code(s): F17.210 - Nicotine dependence, cigarettes, uncomplicated (4) Poor social situation Priority: Primary Status: Acute (5) Hypokalemia Priority: Primary Status: Resolved (6) DVT prophylaxis Priority: Primary Status: Acute Hospital course: Ms. Miguel is a 27 year old female - Time Spent with Patient Total time spent providing and/or coordinating discharge services: - Discharge Medications Prescriptions: levoFLOXacin [Levaquin] 750 mg PO DAILY 5 Days #5 tablet Nicotine Patch [Nicoderm] 14 mg TD DAILY 30 Days #30 patch.td24 predniSONE [PredniSONE] 40 mg PO DAILY 3 Days #6 tablet Home Medications: Acetaminophen [Tylenol] 325 mg PO Q6HR PRN 03/23/18 [History] Gabapentin [Neurontin] 100 mg PO TID 03/23/18 [History] Methadone 90 mg PO 0730 03/23/18 [History] Albuterol Sulfate [Albuterol Inhaler] 2 puff IH Q4HR PRN 04/09/18 [History] Nicotine Patch [Nicoderm] 14 mg TD DAILY 30 Days #30 patch.td24 04/17/18 [Rx] levoFLOXacin [Levaquin] 750 mg PO DAILY 5 Days #5 tablet 04/17/18 [Rx] predniSONE [PredniSONE] 40 mg PO DAILY 3 Days #6 tablet 04/17/18 [Rx] Allergies/Adverse Reactions: Allergy/AdvReac Type Severity Reaction Status Date / Time No Known Allergies Allergy Verified 04/13/18 12:03 Date of admission: 04/13/18 18:28 Primary care physician: Angie Jeff Consults: 04/13/18 17:35 Consult to Pulmonology [CONS] Stat Consulting Provider: [facility] Reason for Consult: multifocal PNA , not improvimg Call Completed: No 04/13/18 17:46 Consult to Case Management [CONS] Routine Comment: 04/14/18 07:56 Consult to Pulmonology [CONS] Routine Consulting Provider: [facility] Reason for Consult: Recurrent pneumonia with ground glass opacities/ worsening findings on CT chest Call Completed: No - Constitutional Vitals: Temp Pulse Resp BP Pulse Ox 98.7 F 88 16 147/79 95 04/17/18 06:29 04/17/18 06:29 04/17/18 07:34 04/17/18 06:29 04/17/18 07:34 Exam: General: AAOx3, answers questions appropriately, no distress Cardio: RRR, no murmur, rubs, or gallops Pulm: CTAB Abdominal: normal bowel sounds, no rigidity or gaurding Extremities: no pedal edema, pulses equal in all 4 extremities Skin: warm, dry, intact - Patient Status Disposition: Home, Self-Care Condition: Good - Discharge Instructions Follow Up With: Halle Contreras MD [Partnered Physician] - (Web-requested, office will call the patient to schedule a follow-up. ) Angie Jeff [Primary Care Provider] - (Patient will have to call to schedule follow-up. )
[2018-04-17 14:41] LABS: QuantiFERON Mitogen minus NIL >10.00 IU/mL
[2018-04-19 08:48] LABS: QuantiFERON NIL 0.06 IU/mL; QuantiFERON-TB Gold In-Tube NEGATIVE (Negative)
== END 2018-04-17 13:00 | disposition home or self-care (01) | DRG 139 ==
LOC: 3ANU 11:59 → EMEROOARM 11:59 → OBSVTOIN 18:28 → SUATTDRO 18:28 → 3ANU 20:15
PROVIDERS: ADMIT Internal Medicine; ATTEND Student in an Organized Health Care Education/Training Program

== ENCOUNTER 2018-11-27 10:58 | Observation (INO) ==
[2018-11-27] MEDS ORDERED: 0.9 % Sodium Chloride 1,000 ML IVC ONE ×2 (11:35→13:49)
--- NOTE | 2018-11-27 12:01 | Emergency Department Note ---
Disposition Clinical Impression: Atypical pneumonia Disposition: Admitted As Inpatient Condition: Good Time of Disposition: 13:50 Chest Pain HPI - General Chief Complaint: ED General Medical Stated Complaint: Pneumonia Time Seen by Provider: 11/27/18 11:00 Source: patient Mode of arrival: private vehicle Limitations: no limitations Vital Signs Reviewed: Yes Nursing Notes Reviewed: Yes - History of Present Illness HPI Narrative: Patient with hx of atypical pneumonia - dx'd on CTA two days ago - presents from home for eval of worsening cough, MARJORIE, continued fever /chills and now also chest pain. Pain is described as heaviness and soreness - worse with coughing, nothing makes it better. It radiates into the back. Hx of similar last year which required admission and bronch. Cough is productive of black sputum at times. No hemoptysis. Pt complaint: chest pain Onset (ago): day(s) Duration: constant, gradually worsening Onset: during rest Pain Location: substernal, left chest, right chest, other (upper back) Severity: moderate Severity scale (1-10): 7 Quality: heaviness, dull Pain Radiation: none Improves with: nothing Worsens with: other (cough) Associated symptoms: Reports: dyspnea, fever, cough. Denies: nausea, vomiting, diaphoresis, sense of impending doom, syncope, palpitations, leg swelling Treatments prior to arrival chest pain: other (was here on 11/25 for same. Dx atypical pneumonia - found on CTA. ) - Related Data On Oral Contraceptives: No Home Medications Medication Instructions Recorded Confirmed Methadone 95 mg PO DAILY 03/23/18 11/27/18 BuPROPion XL (24 HR) [Wellbutrin 300 mg PO DAILY 11/25/18 11/27/18 Xl] DiphenhydraMINE [Benadryl] 1 - 2 cap PO HS PRN 11/25/18 11/27/18 Albuterol Sulfate [Albuterol 1 puff IH Q6HR PRN 11/27/18 11/27/18 Inhaler] Previous Rx's Medication Instructions Recorded levoFLOXacin [Levaquin] 750 mg PO DAILY #7 tablet 11/25/18 predniSONE [PredniSONE] 40 mg PO DAILY #8 tablet 11/25/18 Allergies Allergy/AdvReac Type Severity Reaction Status Date / Time No Known Allergies Allergy Verified 11/27/18 11:02 All systems ED: reviewed and negative except as stated. Review of Systems: As Per HPI Constitutional: Reports: as per HPI, fever, chills. Denies: weakness Eyes: Denies: eye pain, eye discharge, vision change ENT ED: Denies: ear pain, throat pain, congestion, dysphagia Cardiovascular: Reports: as per HPI, chest pain, dyspnea on exertion. Denies: palpitations, orthopnea, edema, syncope, paroxysmal nocturnal dyspnea Respiratory: Reports: as per HPI, cough, dyspnea, sputum production ("Sometimes black"). Denies: wheezes, hemoptysis, stridor Gastrointestinal: Denies: abdominal pain, nausea, vomiting, diarrhea Genitourinary: Denies: dysuria, frequency, hematuria Musculoskeletal: Reports: as per HPI, back pain, myalgia. 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 Absent: scleral icterus, conjunc tival injection, miosis, mydriasis, periorbital swelling - ENT ENT exam: normal oropharynx, mucous membranes moist - Neck Neck exam: Present: normal inspection, full ROM, trachea midline. Absent: tenderness, meningismus, lymphadenopathy, thyromegaly - Chest Chest inspection: Present: normal inspection, symmetric chest wall rise. Absent: tenderness - Respiratory Respiratory exam: Present: normal lung sounds bilaterally. Absent: respiratory distress, wheezes, stridor, accessory muscle use, prolonged expiratory phase - Cardiovascular Cardiovascular exam: Present: regular rate, normal rhythm, normal heart sounds - Extremities Exam Extremities exam: Present: normal inspection, normal capillary refill. Absent: pedal edema - Back Exam Back exam: Present: normal inspection, full ROM. Absent: tenderness, CVA tenderness (R), CVA tenderness (L), vertebral tenderness, rashes - Neurological Exam Neurological exam: Present: alert, oriented X3, CN II-XII intact, normal gait - Psychiatric Psychiatric exam: Present: normal affect, normal mood - Skin Skin exam: Present: warm, dry, intact, normal color Course Course Narrative: Patient was diagnosed with Atypical pneumonia two days ago. She was sent home on Levaquin and is not improving. Labs, meds and cxr ordered. Vitals are normal. She appears uncomfortable but non-toxic. Lungs are clear. Labs show leukocytosis of 12 - increased c/w two days ago. Lactate is 2.1. Cultures ordered. Patient received Normal Saline and Toradol. This helped a little with the pain. Troponin is negative. In the setting of a heart score of 1 and constant pain since yesterday, it is very unlikely that her symptoms are related to ACS. 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 She currently lives with her sister and states that she has been clean for 6 months. CXR read by radiologist as no acute abnormality. Will contact hospitalist for admission. Case discussed with Dr. Stefany Russo. He has had face to face time with the patient and agrees with the assessment and plan. Vital Signs Temperature 97.8 F 11/27/18 11:02 Pulse Rate 68 11/27/18 11:02 Respiratory Rate 18 11/27/18 11:02 Blood Pressure 106/66 11/27/18 11:02 O2 Sat by Pulse Oximetry 99 11/27/18 11:02 Temperature 97.9 F 11/27/18 15:35 Pulse Rate 74 11/27/18 15:35 Respiratory Rate 15 11/27/18 15:35 Blood Pressure 111/72 11/27/18 15:35 O2 Sat by Pulse Oximetry 98 11/27/18 15:35 Oxygen Delivery Oxygen Delivery Room Air Chest Pain - Medical Records Medical records reviewed: Yes I reviewed the patient's medical records. - Lab Data Lab results reviewed: Yes I reviewed the patient's lab results. Lab results narrative: Laboratory Last Values WBC 12.3 K/mcL (4.3-11.1) H D 11/27/18 11:59 RBC 4.66 M/mcL (3.82-4.97) 11/27/18 11:59 Hgb 10.7 g/dL (11.5-15.4) L 11/27/18 11:59 Hct 35.9 % (35.3-44.9) 11/27/18 11:59 MCV 77.0 fL (83.0-100.0) L 11/27/18 11:59 MCH 23.0 pg (28.0-33.3) L 11/27/18 11:59 MCHC 29.8 g/dL (31.6-35.5) L 11/27/18 11:59 RDW 18.3 % (11.5-14.5) H 11/27/18 11:59 Plt Count 308 K/mcL (140-400) 11/27/18 11:59 MPV 10.6 fL (9.4-12.4) 11/27/18 11:59 Immature Gran % 0.8 % (0-4) 11/27/18 11:59 Seg Neutrophils % 61.0 % 11/27/18 11:59 28.9 % 11/27/18 11:59 8.7 % 11/27/18 11:59 0.4 % 11/27/18 11:59 0.2 % 11/27/18 11:59 7.5 K/mcL (1.6-8.9) 11/27/18 11:59 3.6 K/mcL (0.6-4.6) 11/27/18 11:59 1.1 K/mcL (0.0-1.3) 11/27/18 11:59 0.1 K/mcL (0.0-0.6) 11/27/18 11:59 0.0 K/mcL (0.0-0.2) 11/27/18 11:59 PT 11.0 Seconds (9.4-12.1) 11/27/18 11:59 INR 1.0 11/27/18 11:59 APTT 28.6 Seconds (26.0-36.0) 11/27/18 11:59 Sodium 140 mEq/L (136-145) 11/27/18 11:59 Potassium 3.3 mEq/L (3.5-5.1) L 11/27/18 11:59 Chloride 103 mEq/L (98-107) 11/27/18 11:59 Carbon Dioxide 28 mEq/L (23-29) 11/27/18 11:59 BUN 11 mg/dL (6-20) 11/27/18 11:59 0.67 mg/dL (0.60-1.20) 11/27/18 11:59 Est GFR ( Amer) > 60 (> 60) 11/27/18 11:59 Est GFR (Non-Af Amer) > 60 (> 60) 11/27/18 11:59 16 (6-26) 11/27/18 11:59 Glucose 103 mg/dL (70-105) 11/27/18 11:59 290 (280-300) 11/27/18 11:59 Lactic Acid 2.1 mmol/L (0.5-2.2) 11/27/18 11:59 Calcium 9.6 mg/dL (8.6-10.3) 11/27/18 11:59 Phosphorus 4.6 mg/dL (2.7-4.5) H 11/27/18 11:59 Magnesium 1.9 mg/dL (1.6-2.6) 11/27/18 11:59 0.2 mg/dL (0.3-1.0) L 11/27/18 11:59 0.0 mg/dL (0.0-0.2) 11/27/18 11:59 0.2 mg/dL (0.0-1.2) 11/27/18 11:59 AST 16 Units/L (13-39) 11/27/18 11:59 ALT 12 Units/L (7-52) 11/27/18 11:59 71 Units/L (34-104) 11/27/18 11:59 < 0.03 ng/mL (< 0.04) 11/27/18 11:59 7.6 g/dL (6.4-8.9) 11/27/18 11:59 4.6 g/dL (3.5-5.7) 11/27/18 11:59 3.0 g/dL (2.4-3.5) 11/27/18 11:59 1.5 (1.1-2.2) 11/27/18 11:59 Result diagrams: 11/27/18 11:59 11/27/18 11:59 Lab Results 11/27/18 11/27/18 11/27/18 Range/Units 11:59 11:59 11:59 WBC 12.3 H D (4.3-11.1) K/mcL RBC 4.66 (3.82-4.97) M/mcL Hgb 10.7 L (11.5-15.4) g/dL Hct 35.9 (35.3-44.9) % MCV 77.0 L (83.0-100.0) fL MCH 23.0 L (28.0-33.3) pg MCHC 29.8 L (31.6-35.5) g/dL RDW 18.3 H (11.5-14.5) % Plt Count 308 (140-400) K/mcL MPV 10.6 (9.4-12.4) fL Immature Gran % 0.8 (0-4) % Seg Neutrophils % 61.0 % Lymphocytes % 28.9 % Monocytes % 8.7 % Eosinophils % 0.4 % Basophils % 0.2 % Neutrophils # 7.5 (1.6-8.9) K/mcL Lymphocytes # 3.6 (0.6-4.6) K/mcL Monocytes # 1.1 (0.0-1.3) K/mcL Eosinophils # 0.1 (0.0-0.6) K/mcL Basophils # 0.0 (0.0-0.2) K/mcL PT 11.0 (9.4-12.1) Seconds INR 1.0 APTT 28.6 (26.0-36.0) Seconds Sodium 140 (136-145) mEq/L Potassium 3.3 L (3.5-5.1) mEq/L Chloride 103 (98-107) mEq/L Carbon Dioxide 28 (23-29) mEq/L BUN 11 (6-20) mg/dL Creatinine 0.67 (0.60-1.20) mg/dL Est GFR ( Amer) > 60 (> 60) Est GFR (Non-Af Amer) > 60 (> 60) BUN/Creatinine Ratio 16 (6-26) Glucose 103 (70-105) mg/dL Calculated Osmolality 290 (280-300) Lactic Acid (0.5-2.2) mmol/L Calcium 9.6 (8.6-10.3) mg/dL Phosphorus 4.6 H (2.7-4.5) mg/dL Magnesium 1.9 (1.6-2.6) mg/dL Total Bilirubin 0.2 L (0.3-1.0) mg/dL Direct Bilirubin 0.0 (0.0-0.2) mg/dL Indirect Bilirubin 0.2 (0.0-1.2) mg/dL AST 16 (13-39) Units/L ALT 12 (7-52) Units/L Alkaline Phosphatase 71 (34-104) Units/L Troponin I < 0.03 (< 0.04) ng/mL Serum Total Protein 7.6 (6.4-8.9) g/dL Albumin 4.6 (3.5-5.7) g/dL Globulin 3.0 (2.4-3.5) g/dL Albumin/Globulin Ratio 1.5 (1.1-2.2) Urine Color (Yellow) Urine Clarity (Clear) Urine pH (5.0-8.0) pH Units Ur Specific [place] (1.010-1.025) Urine Protein (Neg-Trace) mg/dL Urine Glucose (UA) (Normal) mg/dL Urine Ketones (Negative) mg/dL Urine Blood (Negative) Urine Nitrite (Negative) Urine Bilirubin (Negative) Urine Urobilinogen (Normal) mg/dL Ur Leukocyte Esterase (Negative) Urine Microscopic RBC (0-3) per hpf Urine Microscopic WBC (0-3) per hpf Ur Squamous Epith Cells (None-Few) per lpf Urine Bacteria (None-Few) per hpf Hyaline Casts (None-Few) per lpf Ur Culture Indicated? (NO) 11/27/18 11/27/18 11/27/18 Range/Units 11:59 13:59 16:30 WBC (4.3-11.1) K/mcL RBC (3.82-4.97) M/mcL Hgb (11.5-15.4) g/dL Hct (35.3-44.9) % MCV (83.0-100.0) fL MCH (28.0-33.3) pg MCHC (31.6-35.5) g/dL RDW (11.5-14.5) % Plt Count (140-400) K/mcL MPV (9.4-12.4) fL Immature Gran % (0-4) % Seg Neutrophils % % Lymphocytes % % Monocytes % % Eosinophils % % Basophils % % Neutrophils # (1.6-8.9) K/mcL Lymphocytes # (0.6-4.6) K/mcL Monocytes # (0.0-1.3) K/mcL Eosinophils # (0.0-0.6) K/mcL Basophils # (0.0-0.2) K/mcL PT (9.4-12.1) Seconds INR APTT (26.0-36.0) Seconds Sodium (136-145) mEq/L Potassium (3.5-5.1) mEq/L Chloride (98-107) mEq/L Carbon Dioxide (23-29) mEq/L BUN (6-20) mg/dL Creatinine (0.60-1.20) mg/dL Est GFR ( Amer) (> 60) Est GFR (Non-Af Amer) (> 60) BUN/Creatinine Ratio (6-26) Glucose (70-105) mg/dL Calculated Osmolality (280-300) Lactic Acid 2.1 1.9 (0.5-2.2) mmol/L Calcium (8.6-10.3) mg/dL Phosphorus (2.7-4.5) mg/dL Magnesium (1.6-2.6) mg/dL Total Bilirubin (0.3-1.0) mg/dL Direct Bilirubin (0.0-0.2) mg/dL Indirect Bilirubin (0.0-1.2) mg/dL AST (13-39) Units/L ALT (7-52) Units/L Alkaline Phosphatase (34-104) Units/L Troponin I (< 0.04) ng/mL Serum Total Protein (6.4-8.9) g/dL Albumin (3.5-5.7) g/dL Globulin (2.4-3.5) g/dL Albumin/Globulin Ratio (1.1-2.2) Urine Color Yellow (Yellow) Urine Clarity Clear (Clear) Urine pH 6.5 (5.0-8.0) pH Units Ur Specific [place] 1.010 (1.010-1.025) Urine Protein Negative (Neg-Trace) mg/dL Urine Glucose (UA) Normal (Normal) mg/dL Urine Ketones Negative (Negative) mg/dL Urine Blood Trace H (Negative) Urine Nitrite Negative (Negative) Urine Bilirubin Negative (Negative) Urine Urobilinogen Normal (Normal) mg/dL Ur Leukocyte Esterase Small H (Negative) Urine Microscopic RBC 15-30 H (0-3) per hpf Urine Microscopic WBC 5-15 H (0-3) per hpf Ur Squamous Epith Cells Many H (None-Few) per lpf Urine Bacteria None Seen (None-Few) per hpf Hyaline Casts None Seen (None-Few) per lpf Ur Culture Indicated? YES A (NO) - Radiology Data Radiology results reviewed: Yes I reviewed the patient's radiology results. Chest X-Ray 11/27/18 11:37 IMPRESSION: No acute process. D/ / Erasto Grey MD / Erasto Grey MD Interpreting Provider: Erasto Grey MD - EKG Data EKG attestation: Yes I reviewed and interpreted this EKG. EKG shows normal: sinus rhythm Rate: normal Rhythm: NSR T wave inversions noted in: v1, v2 When compared to previous EKG there are: no significant changes Interpretation: unchanged when compared to prior tracing (date) (11/25), nonspecific ST-T wave changes Heart Score - Score History: Slightly Suspicious EKG: Normal Age: Less than 45 Risk Factors: 1-2 risk factors Troponin: Less than normal limit HEART Score Total: 1
[2018-11-27] MEDS ORDERED: Ketorolac 15 MG/ML VIAL IVP ONE (12:11)
[2018-11-27 12:32] LABS: Basophils % 0.2 %; Eosinophils # 0.1 K/mcL (0.0-0.6); Eosinophils % 0.4 %; Hematocrit 35.9 % (35.3-44.9); Hemoglobin 10.7 g/dL (11.5-15.4); Immature Granulocytes % 0.8 % (0-4); Lymphocytes # 3.6 K/mcL (0.6-4.6); Lymphocytes % 28.9 %; Mean Corpuscular HGB Conc 29.8 g/dL (31.6-35.5); Mean Platelet Volume 10.6 fL (9.4-12.4); Monocytes # 1.1 K/mcL (0.0-1.3); Monocytes % 8.7 %; Neutrophils # 7.5 K/mcL (1.6-8.9); Platelet Count 308 K/mcL (140-400); Red Blood Count 4.66 M/mcL (3.82-4.97); Red Cell Distribution Width 18.3 % (11.5-14.5)
[2018-11-27 12:34] LABS: White Blood Count 12.3 K/mcL (4.3-11.1)
[2018-11-27 12:42] LABS: Activated Partial Thrombo Time 28.6 Seconds (26.0-36.0)
[2018-11-27 12:54] LABS: Alanine Aminotransferase 12 Units/L (7-52); Albumin 4.6 g/dL (3.5-5.7); Albumin/Globulin Ratio 1.5 (1.1-2.2); Alkaline Phosphatase 71 Units/L (34-104); Aspartate Amino Transferase 16 Units/L (13-39); BUN/Creatinine Ratio 16 (6-26); Bilirubin,Indirect 0.2 mg/dL (0.0-1.2); Bilirubin,Total 0.2 mg/dL (0.3-1.0); Blood Urea Nitrogen 11 mg/dL (6-20); Calcium 9.6 mg/dL (8.6-10.3); Carbon Dioxide 28 mEq/L (23-29); Chloride 103 mEq/L (98-107); Glucose 103 mg/dL (70-105); Magnesium 1.9 mg/dL (1.6-2.6); Osmolality,Calculated 290 (280-300); Phosphorous 4.6 mg/dL (2.7-4.5); Potassium 3.3 mEq/L (3.5-5.1); Sodium 140 mEq/L (136-145); Total Protein 7.6 g/dL (6.4-8.9); Troponin I < 0.03 ng/mL (< 0.04); eGFR For African Americans > 60 (> 60); eGFR For Non-African Americans > 60 (> 60)
[2018-11-27] MEDS ORDERED: cefTRIAXone 1,000 MG in 0.9 % Sodium Chloride Mini Bag 100 ML IVPB ONE (13:49)
[2018-11-27 14:10] LABS: Bilirubin,Urine Negative (Negative); Blood,Urine Trace (Negative); Clarity,Urine Clear (Clear); Color,Urine Yellow (Yellow); Glucose,Urine (UA) Normal (Normal); Ketones,Urine Negative (Negative); Leukocyte Esterase,Urine Small (Negative); Nitrite,Urine Negative (Negative); PH,Urine 6.5 pH Units (5.0-8.0); Protein,Urine Negative (Neg-Trace); Urobilinogen,Urine Normal (Normal)
[2018-11-27 14:13] LABS: Bacteria,Urine None Seen per hpf (None-Few); Hyaline Casts,Urine None Seen per lpf (None-Few); RBC,Urine 15-30 per hpf (0-3); Squamous Epithelial Cell,Urine Many per lpf (None-Few)
--- NOTE | 2018-11-27 14:29 | Electrocardiograph Report ---
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
[2018-11-27] MEDS ORDERED: Naloxone 0.4 MG/ML INJ IVP PRN (16:08)
--- NOTE | 2018-11-27 16:25 | Internal Med History&Physical ---
Date of Encounter: 11/27/18 Time of Encounter: 16:15 Internal Medicine - H&P: HPI Chief complaint: CP Admitted From: Emergency Dept Plans for Post Hospital Care: Home History of present illness: Ms. Miguel is a 28 year old female past medical history of substance abuse cigarette smoking previous pneumonia. Patient presented to [facility] ED with complaints of chest pain worsening cough difficulty breathing fevers/chills. She was seen in the ER 2 days ago and was diagnosed with pneumonia and was initiated on Levaquin as well as steroids. She has been taking her medications as prescribed however she has continued to experiencing worsening cough difficulty breathing. Production fevers and chills and now chest pain which occurs on inspiration and while coughing radiates to her back. Chest x-ray with no acute process chest CTA from 2 days ago shows no evidence of pulmonary embolism improved appearance of previously noted groundglass of pacer leads in the upper lobes new areas of groundglass of PACs seen in the lower lobes differentials include recurrent atypical infection or interstitial pneumonitis - lab work does show a slightly elevated white count and low potassium vital signs are stable but cultures were drawn patient was initiated on Rocephin -Symptoms are similar to presentation in April 2018 at that time she was seen by pulmonary and multifocal infiltrates and underwent bronchoscopy-showing mucoid secretions throughout the tracheal bronchial tree with notable black substance mixed in the mucus suspected related inhalation injury from illicit substance use.-Patient states that she is currently on methadone and has not used heroin in 3-4 months however she did smoke crack cocaine approximately one month ago. States that she has been having symptoms of cough and has been treated at urgent care for the past month for possible bronchitis and presented to days ago to the ER for treatment and was diagnosed with pneumonia at that time.-Patient has been admitted for further work up and evaluation-due to failed outpatient treatment patient will be admitted as inpatient Past Med Surg Social Fam HX - Past Medical History Medical history: kidney stones, other Additional medical history: pneumonia Psychiatric history: no psych history - Past Surgical History Surgical History: cholecystectomy - Social History Smoking Status: Current every day smoker Packs per day: 1 Smokeless Tobacco Status: No Alcohol use: none Drug use: none - Family History Mother Living Status: Hx Family Respiratory Disorders: Yes (Lung cancer) Internal Medicine - H&P: Meds Methadone 95 mg PO DAILY 03/23/18 [History] BuPROPion XL (24 HR) [Wellbutrin Xl] 300 mg PO DAILY 11/25/18 [History] DiphenhydraMINE [Benadryl] 1 - 2 cap PO HS PRN 11/25/18 [History] levoFLOXacin [Levaquin] 750 mg PO DAILY #7 tablet 11/25/18 [Rx] predniSONE [PredniSONE] 40 mg PO DAILY #8 tablet 11/25/18 [Rx] Albuterol Sulfate [Albuterol Inhaler] 1 puff IH Q6HR PRN 11/27/18 [History] Allergy/AdvReac Type Severity Reaction Status Date / Time No Known Allergies Allergy Verified 11/27/18 11:02 All Systems PM: A 10-system review of systems was performed and is negative for pertinent findings except as documented above in the HPI. - Constitutional Constitutional: chills, fever(s) - EENT Eyes: no change in vision, no discharge, no pain, no photophobia Ears: no ear discharge, no ear pain, no tinnitus Nose, mouth and throat: no dysphagia, no nasal discharge, no neck pain, no sore throat - Cardiovascular Cardiovascular ROS IM: chest pain, dyspnea, no diaphoresis, no lightheadedness, no palpitations, no syncope - Respiratory Respiratory: cough, dyspnea, change in phlegm color, pain with cough - Gastrointestinal Gastrointestinal: no abdominal pain, no diarrhea, no hematemesis, no hematochezia, no melena, no nausea, no vomiting - Genitourinary Genitourinary: no change in urinary stream, no dysuria, no flank pain, no hematuria - Musculoskeletal Musculoskeletal ROS IM: no numbness, no tingling - Integumentary Integumentary IM: no rash, no unusual bruising - Neurological Neurological ROS: no confusion, no convulsions, no focal weakness, no numbness, no tingling, no tremor(s) - Hematologic/Lymphatic Hematologic/Lymphatic: no easy bruising - Constitutional Vitals: Temp Pulse Resp BP Pulse Ox 97.9 F 74 15 111/72 98 11/27/18 15:35 11/27/18 15:35 11/27/18 15:35 11/27/18 15:35 11/27/18 15:35 Exam: Skin: Free of rash and discoloration. Eyes: Sclera is white. There is no discharge from eyes. ENMT: Oral/pharyngeal mucosa is normal in appearance. There is no discharge from nose or ears. Respiratory: Normal breath sounds with no crackles and wheezes bilaterally. CV: Heart is regular with no gallop or murmur. GI: Abdomen is flat and soft with no palpable mass or visceromegaly. : There is no tenderness in patient's flanks bilaterally. Neuro exam: He has good strength in upper and lower extremities. He has normal eye movements. Psychiatric: He has normal affect. His thought process is appropriate to the situation. Internal Med - H&P Results - Labs CBC & Chem 7: 11/27/18 11:59 11/27/18 11:59 Labs: Short CBC 11/27/18 Range/Units 11:59 WBC 12.3 H D (4.3-11.1) K/mcL Hgb 10.7 L (11.5-15.4) g/dL Hct 35.9 (35.3-44.9) % Plt Count 308 (140-400) K/mcL Neutrophils # 7.5 (1.6-8.9) K/mcL BMP 11/27/18 11:59 Sodium 140 Potassium 3.3 L Chloride 103 Carbon Dioxide 28 BUN 11 Creatinine 0.67 Glucose 103 Calcium 9.6 Cardiac Enzymes 11/27/18 Range/Units 11:59 Troponin I < 0.03 (< 0.04) ng/mL Liver Function 11/27/18 Range/Units 11:59 Total Bilirubin 0.2 L (0.3-1.0) mg/dL Direct Bilirubin 0.0 (0.0-0.2) mg/dL AST 16 (13-39) Units/L ALT 12 (7-52) Units/L Alkaline Phosphatase 71 (34-104) Units/L Albumin 4.6 (3.5-5.7) g/dL Urine 11/27/18 Range/Units 13:59 Urine Color Yellow (Yellow) Urine Clarity Clear (Clear) Urine pH 6.5 (5.0-8.0) pH Units Ur Specific [place] 1.010 (1.010-1.025) Urine Protein Negative (Neg-Trace) mg/dL Urine Glucose (UA) Normal (Normal) mg/dL - Impressions ITS Impressions Chest X-Ray 11/27/18 11:37 IMPRESSION: No acute process. D/ / Erasto Grey MD / Erasto Grey MD Interpreting Provider: Erasto Grey MD - Assessment and Plan (1) Pneumonia Current Visit: Yes Status: Acute Assessment and plan: Pt has been experiencing cough and subjective fevers chills black sputum production and dyspnea. CTA completed 2 days ago reveals-improved groundglass opacities in the upper lobes and new areas of groundglass a paced these in the lower lobes-initially started as an outpatient on Levaquin and steroid with little improvement in symptoms and developed chest pain on cough and inspiration Blood cultures have been obtained We will obtain sputum culture Continue bronchodilators Oxygen as needed Continue with Rocephin add azithromycin Continue with steroid burst for 2 more days Qualifiers: Pneumonia type: due to unspecified organism Laterality: bilateral Lung location: lower lobe of lung Qualified Code(s): J18.1 - Lobar pneumonia, unspecified organism (2) COPD (chronic obstructive pulmonary disease) Current Visit: No Status: Acute Assessment and plan: Continue with bronchodilators oxygen as needed discuss smoking cessation Qualifiers: COPD type: unspecified COPD Qualified Code(s): J44.9 - Chronic obstructive pulmonary disease, unspecified (3) DVT prophylaxis Current Visit: No Status: Acute Assessment and plan: Lovenox subcutaneous (4) History of substance abuse Current Visit: No Status: Acute Assessment and plan: Patient states that she has been clean from heroin for 6 months and does attend a methadone clinic-she did present her methadone bottle and we will confirm her dosage per pharmacy Patient states that she smoked crack cocaine approximate one month ago counseled the patient on the importance of not abusing illicit drugs and how they are affecting her lungs patient verbalizes understanding We will obtain urine tox screen (5) Nicotine dependence Current Visit: No Status: Acute Assessment and plan: Encourage patient to stop smoking she states that she wants to quit and she is asked to cut down because she is unable to smoke due to her pneumonia. We will place patient on nicotine patch Qualifiers: Nicotine product type: cigarettes Substance use status: uncomplicated Qualified Code(s): F17.210 - Nicotine dependence, cigarettes, uncomplicated (6) Hypokalemia Current Visit: Yes Status: Acute Assessment and plan: We will replace and monitor - Time Spent With Patient Total time spent is greater than 50% in coordination of care (as documented) at patient's floor/unit and/or counseling patient:
[2018-11-27] MEDS: Azithromycin 500 MG in D5% in Water 250 ML IVPB SCH (17:27)
[2018-11-27] MEDS: Nicotine 14 MG PATCH.TD24 TD SCH (17:28)
[2018-11-27] MEDS: Ondansetron 4 MG/2 ML VIAL IVP PRN (19:50)
[2018-11-27] MEDS: Ipratropium/Albuterol Neb 3 ML IH SCH ×2 (19:53→22:23)
[2018-11-28 01:41] LABS: Red Cell Distribution Width 18.5 % (11.5-14.5); White Blood Count 7.5 K/mcL (4.3-11.1)
[2018-11-28 01:42] LABS: Basophils % 0.3 %; Eosinophils # 0.2 K/mcL (0.0-0.6); Eosinophils % 2.3 %; Hematocrit 34.3 % (35.3-44.9); Hemoglobin 10.2 g/dL (11.5-15.4); Immature Granulocytes % 0.3 % (0-4); Lymphocytes # 3.4 K/mcL (0.6-4.6); Lymphocytes % 45.8 %; Mean Corpuscular HGB Conc 29.7 g/dL (31.6-35.5); Mean Corpuscular Hemoglobin 23.2 pg (28.0-33.3); Mean Platelet Volume 10.7 fL (9.4-12.4); Monocytes # 0.7 K/mcL (0.0-1.3); Monocytes % 9.8 %; Neutrophils # 3.1 K/mcL (1.6-8.9); Platelet Count 274 K/mcL (140-400); Segmented Neutrophils % 41.5 %
[2018-11-28 01:54] LABS: BUN/Creatinine Ratio 16 (6-26); Blood Urea Nitrogen 9 mg/dL (6-20); Calcium 8.4 mg/dL (8.6-10.3); Carbon Dioxide 27 mEq/L (23-29); Chloride 109 mEq/L (98-107); Glucose 80 mg/dL (70-105); Magnesium 1.9 mg/dL (1.6-2.6); Osmolality,Calculated 292 (280-300); Potassium 3.9 mEq/L (3.5-5.1); Sodium 142 mEq/L (136-145); eGFR For African Americans > 60 (> 60); eGFR For Non-African Americans > 60 (> 60)
[2018-11-28 02:35] LABS: Hypochromasia Present (Not Present); Platelet Estimate Normal (Normal); Reactive Lymphocytes Present (Not Present)
[2018-11-28] MEDS: Acetaminophen 325 MG TABLET PO PRN (03:51)
[2018-11-28] MEDS: Ipratropium/Albuterol Neb 3 ML IH SCH ×4 (04:05→22:28)
[2018-11-28] MEDS: *HR* Enoxaparin 40 MG/0.4 ML SYRINGE SQ SCH (05:34)
[2018-11-28 07:45] LABS: Amphetamine Screen,Urine Negative ng/mL (Cutoff=1000); Barbiturate Screen,Urine Negative ng/mL (Cutoff=200); Benzodiazepines Screen,Urine Negative ng/mL (Cutoff=300); Cannabinoid Screen,Urine Negative ng/mL (Cutoff = 50); Cocaine Screen,Urine Negative ng/mL (Cutoff= 300); Opiate Screen,Urine Negative ng/mL (Cutoff=300); Phencyclidine Screen,Urine Negative ng/mL (Cutoff=25)
[2018-11-28] MEDS: predniSONE 20 MG TABLET PO SCH (08:37)
[2018-11-28] MEDS: BuPROPion XL (24 HR) 150 MG TABLET PO SCH (08:37)
[2018-11-28] MEDS: Methadone Oral Concentrate 50 MG/5 ML UDC PO SCH (08:37)
[2018-11-28] MEDS: cefTRIAXone 1,000 MG in Water for inj. (sterile) 20 ML 10 ML IVP SCH (08:37)
[2018-11-28] MEDS: Nicotine 14 MG PATCH.TD24 TD SCH (08:38)
[2018-11-28] MEDS: Ondansetron 4 MG/2 ML VIAL IVP PRN (08:49)
[2018-11-28] MEDS ORDERED: Ondansetron ODT 4 MG TAB.RAPDIS SL PRN (11:31)
--- NOTE | 2018-11-28 14:32 | Internal Med Progress Note ---
Hospitalist Progress Note - Encounter Date of Encounter: 11/28/18 Time of Encounter: 11:00 - Subjective Interval History: Patient was seen and examined at bedside she appears to be doing much better today she is not using any oxygen states that she is breathing much easier. Discussed treatment plan with the patient who verbalized understanding - Exam Vitals: Temp Pulse Resp BP Pulse Ox 98.6 F 65 16 132/79 98 11/28/18 11:04 11/28/18 11:04 11/28/18 11:08 11/28/18 11:04 11/28/18 11:08 Exam: Skin: Free of rash and discoloration. Eyes: Sclera is white. There is no discharge from eyes. ENMT: Oral/pharyngeal mucosa is normal in appearance. There is no discharge from nose or ears. Respiratory: Normal breath sounds with no crackles and wheezes bilaterally. CV: Heart is regular with no gallop or murmur. GI: Abdomen is flat and soft with no palpable mass or visceromegaly. : There is no tenderness in patient's flanks bilaterally. Neuro exam: He has good strength in upper and lower extremities. He has normal eye movements. Psychiatric: He has normal affect. His thought process is appropriate to the situation. - Assessment and Plan (1) Pneumonia Current Visit: Yes Status: Acute Assessment and Plan: Pt has been experiencing cough and subjective fevers chills black sputum production and dyspnea. CTA completed 2 days ago reveals-improved groundglass opacities in the upper lobes and new areas of groundglass a paced these in the lower lobes-initially started as an outpatient on Levaquin and steroid with l ittle improvement in symptoms and developed chest pain on cough and inspiration Blood cultures have been obtained We will obtain sputum culture Continue bronchodilators Oxygen as needed Continue with Rocephin add azithromycin Continue with steroid burst for 2 more days 11/28 Lung sounds are clear today she is not using any oxygen at this time white count is much improved no fevers overnight Continue with Rocephin and azithromycin Continue with steroid burst for another day Sputum culture is pending (2) COPD (chronic obstructive pulmonary disease) Current Visit: No Status: Acute Assessment and Plan: Continue with bronchodilators oxygen as needed discuss smoking cessation Does not appear to be in exacerbation at this time (3) DVT prophylaxis Current Visit: No Status: Acute Assessment and Plan: Lovenox subcutaneous (4) History of substance abuse Current Visit: No Status: Acute Assessment and Plan: Patient states that she has been clean from heroin for 6 months and does attend a methadone clinic-she did present her methadone bottle and we will confirm her dosage per pharmacy Patient states that she smoked crack cocaine approximate one month ago counseled the patient on the importance of not abusing illicit drugs and how they are affecting her lungs patient verbalizes understanding urine tox screen was negative (5) Nicotine dependence Current Visit: No Status: Acute Assessment and Plan: Encourage patient to stop smoking she states that she wants to quit and she is asked to cut down because she is unable to smoke due to her pneumonia. We will place patient on nicotine patch (6) Hypokalemia Current Visit: Yes Status: Acute - Time Spent with Patient Total time spent is greater than 50% in coordination of care (as documented) at patient's floor/unit and/or counseling patient: Internal Medicine: Result - Labs CBC & Chem 7: 11/28/18 01:07 11/28/18 01:07 Labs: Short CBC 11/28/18 Range/Units 01:07 WBC 7.5 (4.3-11.1) K/mcL Hgb 10.2 L (11.5-15.4) g/dL Hct 34.3 L (35.3-44.9) % Plt Count 274 (140-400) K/mcL Neutrophils # 3.1 (1.6-8.9) K/mcL BMP 11/28/18 01:07 Sodium 142 Potassium 3.9 Chloride 109 H Carbon Dioxide 27 BUN 9 Creatinine 0.58 L Glucose 80 Calcium 8.4 L - ABG Interpretation ABG results: PT/INR, D-dimer PT 11.0 Seconds (9.4-12.1) 11/27/18 11:59 Consult Discharge Plan - Plan Referrals: NONE,PCP [Primary Care Provider] - (1) Pneumonia Qualifiers: Pneumonia type: due to unspecified organism Laterality: bilateral Lung location: lower lobe of lung Qualified Code(s): J18.1 - Lobar pneumonia, unspecified organism (2) COPD (chronic obstructive pulmonary disease) Qualifiers: COPD type: unspecified COPD Qualified Code(s): J44.9 - Chronic obstructive pulmonary disease, unspecified (5) Nicotine dependence Qualifiers: Nicotine product type: cigarettes Substance use status: uncomplicated Qualified Code(s): F17.210 - Nicotine dependence, cigarettes, uncomplicated
[2018-11-28] MEDS: Azithromycin 500 MG in D5% in Water 250 ML IVPB SCH (16:12)
[2018-11-29 04:03] LABS: Basophils % 0.2 %; Eosinophils # 0.1 K/mcL (0.0-0.6); Hematocrit 37.3 % (35.3-44.9); Hemoglobin 11.3 g/dL (11.5-15.4); Immature Granulocytes % 0.8 % (0-4); Lymphocytes # 3.2 K/mcL (0.6-4.6); Lymphocytes % 30.1 %; Mean Corpuscular HGB Conc 30.3 g/dL (31.6-35.5); Mean Corpuscular Hemoglobin 22.8 pg (28.0-33.3); Mean Corpuscular Volume 75.2 fL (83.0-100.0); Mean Platelet Volume 10.9 fL (9.4-12.4); Monocytes % 9.6 %; Neutrophils # 6.1 K/mcL (1.6-8.9); Platelet Count 324 K/mcL (140-400); Red Blood Count 4.96 M/mcL (3.82-4.97); Red Cell Distribution Width 18.4 % (11.5-14.5); Segmented Neutrophils % 58.3 %; White Blood Count 10.5 K/mcL (4.3-11.1)
[2018-11-29 04:24] LABS: BUN/Creatinine Ratio 19 (6-26); Blood Urea Nitrogen 9 mg/dL (6-20); Calcium 9.3 mg/dL (8.6-10.3); Carbon Dioxide 29 mEq/L (23-29); Chloride 102 mEq/L (98-107); Glucose 86 mg/dL (70-105); Osmolality,Calculated 288 (280-300); Potassium 3.8 mEq/L (3.5-5.1); Sodium 140 mEq/L (136-145); eGFR For African Americans > 60 (> 60); eGFR For Non-African Americans > 60 (> 60)
[2018-11-29] MEDS: Ipratropium/Albuterol Neb 3 ML IH SCH ×2 (04:58→10:56)
[2018-11-29] MEDS: *HR* Enoxaparin 40 MG/0.4 ML SYRINGE SQ SCH (05:41)
[2018-11-29] MEDS: Acetaminophen 325 MG TABLET PO PRN (05:43)
[2018-11-29 07:00] VITALS: BP 104/64
--- NOTE | 2018-11-29 08:51 | Internal Med Progress Note ---
Hospitalist Progress Note - Encounter Date of Encounter: 11/29/18 Time of Encounter: 08:50 - Exam Vitals: Temp Pulse Resp BP Pulse Ox 98.4 F 78 17 104/64 96 11/29/18 06:57 11/29/18 06:57 11/29/18 06:57 11/29/18 06:57 11/29/18 06:57 - Assessment and Plan (1) Pneumonia Current Visit: Yes Status: Acute (2) COPD (chronic obstructive pulmonary disease) Current Visit: No Status: Acute (3) DVT prophylaxis Current Visit: No Status: Acute (4) History of substance abuse Current Visit: No Status: Acute (5) Nicotine dependence Current Visit: No Status: Acute (6) Hypokalemia Current Visit: Yes Status: Acute - Time Spent with Patient Total time spent is greater than 50% in coordination of care (as documented) at patient's floor/unit and/or counseling patient: Internal Medicine: Result - Labs CBC & Chem 7: 11/29/18 03:15 11/29/18 03:15 Labs: Short CBC 11/29/18 Range/Units 03:15 WBC 10.5 (4.3-11.1) K/mcL Hgb 11.3 L (11.5-15.4) g/dL Hct 37.3 (35.3-44.9) % Plt Count 324 (140-400) K/mcL Neutrophils # 6.1 (1.6-8.9) K/mcL BMP 11/29/18 03:15 Sodium 140 Potassium 3.8 Chloride 102 Carbon Dioxide 29 BUN 9 Creatinine 0.48 L Glucose 86 Calcium 9.3 - ABG Interpretation ABG results: PT/INR, D-dimer PT 11.0 Seconds (9.4-12.1) 11/27/18 11:59 Consult Discharge Plan - Plan Referrals: NONE,PCP [Primary Care Provider] - (1) Pneumonia Qualifiers: Pneumonia type: due to unspecified organism Laterality: bilateral Lung location: lower lobe of lung Qualified Code(s): J18.1 - Lobar pneumonia, unspecified organism (2) COPD (chronic obstructive pulmonary disease) Qualifiers: COPD type: unspecified COPD Qualified Code(s): J44.9 - Chronic obstructive pulmonary disease, unspecified (5) Nicotine dependence Qualifiers: Nicotine product type: cigarettes Substance use status: uncomplicated Qualified Code(s): F17.210 - Nicotine dependence, cigarettes, uncomplicated
[2018-11-29] MEDS: BuPROPion XL (24 HR) 150 MG TABLET PO SCH (09:31)
[2018-11-29] MEDS: Methadone Oral Concentrate 50 MG/5 ML UDC PO SCH (09:31)
[2018-11-29] MEDS: Nicotine 14 MG PATCH.TD24 TD SCH (09:32)
[2018-11-29] MEDS: predniSONE 20 MG TABLET PO SCH (09:32)
[2018-11-29] MEDS: cefTRIAXone 1,000 MG in Water for inj. (sterile) 20 ML 10 ML IVP SCH (09:32)
--- NOTE | 2018-11-29 09:47 | Discharge Summary ---
- NOTES TO OUTPATIENT PROVIDER Notes to Outpatient Provider: Patient was found to have pneumonia and was started as outpatient on Levaquin had pleuritic pain on coughing as well as dyspnea sats were stable blood cultures were obtained as well as sputum cultures with no growth to date placed on azithromycin and Rocephin given steroid burst respiratory status improved we will discharge on azithromycin and breathing treatments-patient has been smoking crack cocaine Orders not resulted at time of discharge: Pending orders 11/27/18 12:01 Culture,Blood [BC] Stat 11/27/18 16:13 Sputum Culture [Culture,Sputum with Gram Stain] [] Routine Date of Encounter: 11/29/18 Time of Encounter: 09:28 - Discharge Diagnosis (1) Pneumonia Priority: Primary Status: Acute Qualifiers: Pneumonia type: due to unspecified organism Laterality: bilateral Lung location: lower lobe of lung Qualified Code(s): J18.1 - Lobar pneumonia, unspecified organism (2) COPD (chronic obstructive pulmonary disease) Priority: Secondary Status: Acute Qualifiers: COPD type: unspecified COPD Qualified Code(s): J44.9 - Chronic obstructive pulmonary disease, unspecified (3) History of substance abuse Priority: Secondary Status: Acute (4) Nicotine dependence Priority: Secondary Status: Acute Qualifiers: Nicotine product type: cigarettes Substance use status: uncomplicated Qualified Code(s): F17.210 - Nicotine dependence, cigarettes, uncomplicated (5) Hypokalemia Priority: Secondary Status: Acute Hospital course: Ms. Miguel is a 28 year old female past medical history of substance abuse cigarette smoking previous pneumonia. Patient presented to [facility] ED with complaints of chest pain worsening cough difficulty breathing fevers/chills. She was seen in the ER 2 days ago and was diagnosed with pneumonia and was initiated on Levaquin as well as steroids. She has been taking her medications as prescribed however she has continued to experiencing worsening cough difficulty breathing. Production fevers and chills and now chest pain which occurs on inspiration and while coughing radiates to her back. Chest x-ray with no acute process chest CTA from 2 days ago shows no evidence of pulmonary embolism improved appearance of previously noted groundglass of pacer leads in the upper lobes new areas of groundglass of PACs seen in the lower lobes differentials include recurrent atypical infection or interstitial pneumonitis -lab work does show a slightly elevated white count and low potassium vital signs are stable but cultures were drawn patient was initiated on Rocephin - Symptoms are similar to presentation in April 2018 at that time she was seen by pulmonary and multifocal infiltrates and underwent bronchoscopy-showing mucoid secretions throughout the tracheal bronchial tree with notable black substance mixed in the mucus suspected related inhalation injury from illicit substance use.-Patient states that she is currently on methadone and has not used heroin in 3-4 months however she did smoke crack cocaine approximately one month ago. States that she has been having symptoms of cough and has been treated at urgent care for the past month for possible bronchitis and presented to days ago to the ER for treatment and was diagnosed with pneumonia at that time.- she was given IV Azithromycin and Rocephin bronchodilators and steroid burst - blood culture and sputum culture negative to date - resp state improved- sats are stable - Advised patient to follow up with PCP she verbalized understanding - Time Spent with Patient Total time spent providing and/or coordinating discharge services: - Discharge Medications Prescriptions: New Ipratropium/Albuterol Neb [Duoneb] 3 ml IH QIDR #30 inhsol Nicotine Patch [Nicoderm] 14 mg TD DAILY #24 patch.td24 Azithromycin 250 mg PO DAILY 4 Days #4 tablet Continued Methadone 95 mg PO DAILY BuPROPion XL (24 HR) [Wellbutrin Xl] 300 mg PO DAILY predniSONE [PredniSONE] 40 mg PO DAILY #8 tablet Albuterol Sulfate [Albuterol Inhaler] 1 puff IH Q6HR PRN PRN Reason: Shortness Of Breath/Wheezing Discontinued levoFLOXacin [Levaquin] 750 mg PO DAILY #7 tablet No Action DiphenhydraMINE [Benadryl] 1 - 2 cap PO HS PRN PRN Reason: Sleep Home Medications: Methadone 95 mg PO DAILY 03/23/18 [History] BuPROPion XL (24 HR) [Wellbutrin Xl] 300 mg PO DAILY 11/25/18 [History] DiphenhydraMINE [Benadryl] 1 - 2 cap PO HS PRN 11/25/18 [History] predniSONE [PredniSONE] 40 mg PO DAILY #8 tablet 11/25/18 [Rx] Albuterol Sulfate [Albuterol Inhaler] 1 puff IH Q6HR PRN 11/27/18 [History] Azithromycin 250 mg PO DAILY 4 Days #4 tablet 11/29/18 [Rx] Ipratropium/Albuterol Neb [Duoneb] 3 ml IH QIDR #30 inhsol 11/29/18 [Rx] Nicotine Patch [Nicoderm] 14 mg TD DAILY #24 patch.td24 11/29/18 [Rx] Allergies/Adverse Reactions: Allergy/AdvReac Type Severity Reaction Status Date / Time No Known Allergies Allergy Verified 11/27/18 11:02 Date of admission: 11/27/18 16:36 Primary care physician: PCP NONE Consults: 11/29/18 09:24 Consult to Nurse Navigator [CONS] Routine Comment: PNEUMONIA Discharging clinician: Khadra Sawyer Anticipated date of discharge: 11/29/18 - Constitutional Vitals: Temp Pulse Resp BP Pulse Ox 98.4 F 78 17 104/64 96 11/29/18 06:57 11/29/18 06:57 11/29/18 06:57 11/29/18 06:57 11/29/18 06:57 Exam: Skin: Free of rash and discoloration. Eyes: Sclera is white. There is no discharge from eyes. ENMT: Oral/pharyngeal mucosa is normal in appearance. There is no discharge from nose or ears. Respiratory: Normal breath sounds with no crackles and wheezes bilaterally. CV: Heart is regular with no gallop or murmur. GI: Abdomen is flat and soft with no palpable mass or visceromegaly. : There is no tenderness in patient's flanks bilaterally. Neuro exam: He has good strength in upper and lower extremities. He has normal eye movements. Psychiatric: He has normal affect. His thought process is appropriate to the situation. - Patient Status Disposition: Home, Self-Care Condition: Good Functional capacity at discharge: independent ambulation Overall status at discharge: patient is back to baseline - Discharge Instructions Follow Up With: NONE,PCP [Primary Care Provider] - - Diet and Activity Activity: increase activity as tolerated Diet: advance to your usual diet
--- NOTE | 2018-11-29 14:31 | Electrocardiograph Report ---
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
== END 2018-11-29 12:50 | disposition home or self-care (01) ==
LOC: 3BNU 10:58 → EMEROOARM 10:58 → 3BNU 15:51
PROVIDERS: ADMIT Internal Medicine Nephrology; ATTEND Internal Medicine Nephrology